=== PATIENT | female | born 1945 | race Caucasian/White ===

== ENCOUNTER 2020-01-20 14:21 | Outpatient (REF) | payer MEDICARE, SELFPAY ==
[2020-01-20 18:07] LABS: C Reactive Protein 0.85 mg/dL (< or = 0.50); Rheumatoid Factor < 15.0 IU/mL (<15.0)
[2020-01-21 13:22] LABS: Lyme Blot >12.00 index
[2020-01-24 15:13] LABS: Babesia IgG <1:64 titer (<1:64); Babesia IgM <1:20 titer (<1:20)
[2020-01-25 11:07] LABS: A. Phagocytophilum Ab IgG <1:64 (<1:64); A. Phagocytophilum Ab IgM <1:20 (<1:20); E. Chaffeensis Ab IgG <1:64 (<1:64); E. Chaffeensis Ab IgM <1:20 (<1:20)
== END 2020-01-20 14:22 | disposition home or self-care (01) ==
LOC: HO.MANLDS 14:21
PROVIDERS: PCP Physician Assistant; Visit Provider Physician Assistant
DX: M25.50 Pain in unspecified joint (principal)
CPT/HCPCS: 36415; 82306; 86038; 86039; 86140; 86431; 86618; 86666; 86753

== ENCOUNTER 2020-04-17 14:22 | Outpatient (REF) | payer MEDICARE, SELFPAY ==
[2020-04-17 17:53] LABS: MANUAL DIFF FLAG NO
[2020-04-17 18:24] LABS: Basophils Absolute Auto 0.1 X10*3/uL (0.0-0.2); Basophils Percent Auto 0.7 % (0-2); Eosinophils Absolute Auto 0.1 X10*3/uL (0.0-0.4); Eosinophils Percent Auto 1.3 % (0-4); Hematocrit 43.1 % (37-47); Hemoglobin 13.5 g/dl (12.0-16.0); Imm Gran Abs Auto 0.03 X10*3/uL (0.00-0.03); Imm Gran Pct Auto 0.3 % (0.0-0.4); Lymphocytes Percent Auto 22.2 % (20-40); Mean Corpuscular HGB Conc 31.3 g/dl (31.0-35.0); Mean Corpuscular Hemoglobin 28.7 pg (27.0-33.0); Mean Corpuscular Volume 91.7 fL (80-98); Mean Platelet Volume 10.9 fL (9.4-12.3); Monocytes Absolute Auto 0.5 X10*3/uL (0.1-1.2); Monocytes Percent Auto 5.9 % (2-11); Neutrophils Absolute Auto 6.2 X10*3/uL (2.0-8.3); Neutrophils Percent Auto 69.6 % (45-73); Platelet Count 310 X10*3/uL (160-400); Red Cell Distribution Width 13.6 % (11.0-16.0); White Blood Count 8.9 X10*3/uL (4.8-10.8)
[2020-04-17 18:33] LABS: Alanine Aminotransferase 13 U/L (0-31); Alkaline Phosphatase 54 U/L (39-117); Anion Gap 12 (12-20); Aspartate Amino Transferase 12 U/L (5-31); Bilirubin Total 0.8 mg/dL (0.0-1.0); Blood Urea Nitrogen 15 mg/dL (9-16); C Reactive Protein 0.75 mg/dL (< or = 0.50); Calcium 9.3 mg/dL (8.4-10.2); Carbon Dioxide 30 mmol/L (22-29); Chloride 105 mmol/L (96-108); Estimated Glomerular Filt Rate > 60; Glucose Random 83 mg/dL (60-115); Iron 78 mcg/dL (30-160); Percent Iron Saturation 25 % (15-50); Potassium 4.8 mmol/L (3.3-5.1); Sodium 142 mmol/L (135-145); Total Iron Binding Capacity 318 mcg/dL (228-428); Total Protein 6.4 g/dL (6.5-8.0); Unsaturated Iron Binding 240 ug/dL
[2020-04-17 18:43] LABS: Rheumatoid Factor < 15.0 IU/mL (<15.0)
[2020-04-17 18:48] LABS: Ferritin 88 ng/mL (10-250); Free T4 (Free Thyroxine) 1.06 ng/dL (0.71-1.85); Thyroid Stimulating Hormone 1.02 uIU/mL (0.32-4.0); Vitamin D 25-OH Total 18.5 ng/mL (>30)
[2020-04-17 18:55] LABS: Erythrocyte Sedimentation Rate 8 MM/HR (0-20)
[2020-04-17 18:56] LABS: Folate 12.7 ng/mL (> or = 4.0); Vitamin B12 245 pg/mL (200-900)
[2020-04-19 14:01] LABS: Anti Nuclear Antibody Screen NEGATIVE (NEGATIVE)
[2020-04-20 14:32] LABS: 18 KD (IgG) Band REACTIVE; 23 KD (IgG) Band NON-REACTIVE; 23 KD (IgM) Band REACTIVE; 28 KD (IgG) Band REACTIVE; 30 KD (IgG) Band REACTIVE; 39 KD (IgM) Band NON-REACTIVE; 41 KD (IgM) Band NON-REACTIVE; 45 KD (IgG) Band REACTIVE; 58 KD (IgG) Band REACTIVE; 66 KD (IgG) Band NON-REACTIVE; 93 KD (IgG) Band REACTIVE; Lyme IgG Blot Interp POSITIVE (NEGATIVE); Lyme IgM Blot Interp NEGATIVE (NEGATIVE)
== END 2020-04-17 14:23 | disposition home or self-care (01) ==
LOC: HO.MANLDS 14:22
PROVIDERS: PCP Internal Medicine; Visit Provider Physician Assistant
DX: R53.83 Other fatigue (principal)
CPT/HCPCS: 36415; 80053; 82306; 82607; 82728; 82746; 83540; 84439; 84443; 85025; 85652; 86038; 86039; 86140; 86431; 86617; 86618

== ENCOUNTER 2021-03-05 10:43 | Outpatient (REF) | payer MEDICARE, SELFPAY ==
[2021-03-05 14:45] LABS: Vitamin D 25-OH Total 19.9 ng/mL (>30)
[2021-03-05 15:21] LABS: Vitamin B12 > 2000 pg/mL (200-900)
== END 2021-03-05 10:44 | disposition home or self-care (01) ==
LOC: HO.MANLDS 10:43
PROVIDERS: PCP Physician Assistant; Visit Provider Physician Assistant
DX: E55.9 Vitamin D deficiency, unspecified (principal); E53.8 Deficiency of other specified B group vitamins
CPT/HCPCS: 36415; 82306; 82607

== ENCOUNTER → 2021-10-01 12:41 | Outpatient (BNVA) | payer MEDICARE, SELFPAY | PROVIDERS: PCP Physician Assistant; Visit Provider Student in an Organized Health Care Education/Training Program | DX: R76.8 Other specified abnormal immunological findings in serum (principal); M16.12 Unilateral primary osteoarthritis, left hip; R53.83 Other fatigue; G72.9 Myopathy, unspecified | CPT/HCPCS: 99202 ==

== ENCOUNTER 2021-10-08 13:47 | Outpatient (REF) | payer MEDICARE, SELFPAY ==
[2021-10-08 14:16] LABS: MANUAL DIFF FLAG NO
[2021-10-08 15:22] LABS: Basophils Absolute Auto 0.1 X10*3/uL (0.0-0.2); Basophils Percent Auto 0.6 % (0-2); Eosinophils Absolute Auto 0.1 X10*3/uL (0.0-0.4); Eosinophils Percent Auto 1.2 % (0-4); Hematocrit 42.3 % (37.0-47.0); Hemoglobin 13.4 g/dl (12.0-16.0); Imm Gran Abs Auto 0.03 X10*3/uL (0.00-0.03); Imm Gran Pct Auto 0.3 % (0.0-0.4); Lymphocytes Absolute Auto 1.7 X10*3/uL (1.2-4.9); Lymphocytes Percent Auto 17.1 % (20-40); Mean Corpuscular HGB Conc 31.7 g/dl (31.0-35.0); Mean Corpuscular Volume 88.3 fL (80.0-98.0); Mean Platelet Volume 10.4 fL (9.4-12.3); Monocytes Absolute Auto 0.5 X10*3/uL (0.1-1.2); Monocytes Percent Auto 5.5 % (2-11); Neutrophils Absolute Auto 7.3 x10*3/uL (2.0-8.3); Neutrophils Percent Auto 75.3 % (45-73); Platelet Count 372 X10*3/uL (160-400); Red Blood Count 4.79 X10*6/uL (4.20-5.50); Red Cell Distribution Width 13.7 % (11.0-16.0); White Blood Count 9.7 X10*3/uL (4.8-10.8)
[2021-10-08 15:39] LABS: C Reactive Protein 0.99 mg/dL (< or = 0.50); Rheumatoid Factor < 15.0 IU/mL (<15.0)
[2021-10-08 15:51] LABS: Erythrocyte Sedimentation Rate 21 MM/HR (0-20)
[2021-10-08 16:01] LABS: Thyroid Stimulating Hormone 0.58 uIU/mL (0.32-4.0)
[2021-10-08 16:45] LABS: Appearance Urine Clear; Color Urine Yellow; Glucose Urine UA Negative (Negative); Leukocyte Esterase Urine Negative (Negative); Nitrite Urine Negative (Negative); Specific Gravity - Urine >= 1.030 (1.005-1.025); Urine Blood Negative (Negative); Urine Ketones Negative (Negative); Urine Protein Negative (Neg-Trace)
[2021-10-08 16:51] LABS: Creatinine Urine 220.01 mg/dL; Protein/Creatinine Ratio, Ur 0.06 (<0.2); Total Protein Urine Random 13 mg/dL (<12)
[2021-10-08 17:55] LABS: RBC Urine 0-2 /HPF (0-2); WBC Urine 0-5 /HPF (0-5)
[2021-10-08 17:56] LABS: Bacteria Urine Trace (None Seen); Calcium Oxalate Crystals Urine Present; Squamous Epithelial Cell Urine 0-2 /HPF (0-2)
[2021-10-09 07:36] LABS: HBS Num1 0.65 mIU/mL (0-7.99); HBc Num1 0.06 S/CO (0.00-0.79); HBsAGNum1 0.21 S/CO (0.00-0.99); Hepatitis A Antibody IgM 0.13 Index (0-0.79); Hepatitis B Core Antibody Nonreactive (Nonreactive); Hepatitis B Surface Antigen Negative (Negative); ~HepC Num1 0.05 S/CO (0.00-0.79); ~Hepatitis A Antibody IgM Nonreactive (Nonreactive); ~Hepatitis B Surface Antibody NONREACTIVE (Nonreactive); ~Hepatitis C Antibody Nonreactive (Nonreactive)
[2021-10-10 15:42] LABS: Cyclic Citrullinated Peptide <16 UNITS
[2021-10-11 10:08] LABS: Anti Nuclear Antibody Screen NEGATIVE (NEGATIVE)
[2021-10-11 14:02] LABS: Prot Elec - Albumin 3.7 g/dL (3.8-4.8); Prot Elec - Alpha1 0.4 g/dL (0.2-0.3); Prot Elec - Alpha2 0.9 g/dL (0.5-0.9); Prot Elec - Beta 1 0.5 g/dL (0.4-0.6); Prot Elec - Beta 2 0.4 g/dL (0.2-0.5); Prot Elec - Gamma 0.8 g/dL (0.8-1.7); Prot Elec - Total Protein 6.5 g/dL (6.1-8.1)
[2021-10-11 14:25] LABS: Antibody to SS-A Antigen <1.0 NEG AI (<1.0 NEG); Antibody to SS-B Antigen <1.0 NEG AI (<1.0 NEG)
[2021-10-12 12:47] LABS: Vitamin D 25-OH, D2 32 ng/mL; Vitamin D 25-OH, D3 6 ng/mL; Vitamin D 25-OH, Total 38 ng/mL (30-100)
[2021-10-15 09:52] LABS: IgA 209 mg/dL (70-320); IgG 838 mg/dL (600-1540); IgM 26 mg/dL (50-300)
== END 2021-10-08 13:48 | disposition home or self-care (01) ==
LOC: HO.LAB 13:47
PROVIDERS: Visit Provider Student in an Organized Health Care Education/Training Program
DX: Z11.59 Encounter for screening for other viral diseases (principal); M16.12 Unilateral primary osteoarthritis, left hip; R53.83 Other fatigue; G72.9 Myopathy, unspecified
CPT/HCPCS: 36415; 81001; 82085; 82306; 82550; 82784; 84156; 84165; 84443; 85025; 85652; 86038; 86039; 86140; 86200; 86235; 86334; 86431; 86704; 86706; 86709; 86803; 87340

== ENCOUNTER 2021-10-11 12:45 | Outpatient (REF) | payer MEDICARE, SELFPAY ==
--- NOTE | ~2021-10-11 | MR_ITS ---
EXAMINATION: MR HIP WITHOUT CONTRAST, LEFT CLINICAL INFORMATION: Severe left hip pain. Osteoarthritis. COMPARISON: None TECHNIQUE: MRI of the left hip was obtained using routine sequences on a high-field magnet. FINDINGS: ACETABULAR LABRUM: Attenuation and irregularity of the anterosuperior labrum consistent with complex tearing. ARTICULAR CARTILAGE/BONE: Full-thickness articular cartilage loss along the superior joint space with subchondral cystic change and marginal osteophytes. There is flattening of the superior femoral head with subchondral low T1/T2 signal measuring 2.7 x 1.1 cm (AP x ML), consistent with a nondisplaced subchondral fracture. Prominent marrow edema throughout the femoral head extending into the proximal femoral metaphysis. No evidence of avascular necrosis. No concerning lytic or blastic osseous lesion. MUSCLES/TENDONS: Moderate gluteus minimus tendinosis. Edema within the adductor musculature consistent with mild muscle strains. JOINT FLUID/BURSA: Moderate joint effusion with prominent synovitis. INTRAPELVIC STRUCTURES: Sigmoid diverticulosis without evidence of acute diverticulitis. MR/MR hip LT wo con IMPRESSION: 1. Invnntes-gk-ikmnfu left hip osteoarthritis with a moderate joint effusion and prominent synovitis. 2. Nondisplaced subchondral fracture within the superior aspect of the femoral head with prominent marrow edema. 3. Moderate gluteus minimus tendinosis. Mild strains of the adductor muscles. 4. Sigmoid diverticulosis.
== END 2021-10-11 12:46 | disposition home or self-care (01) ==
LOC: HO.MRI 12:45
PROVIDERS: Visit Provider Student in an Organized Health Care Education/Training Program
DX: M16.12 Unilateral primary osteoarthritis, left hip (principal); G72.9 Myopathy, unspecified; R53.83 Other fatigue
CPT/HCPCS: 73721

== ENCOUNTER 2021-10-22 13:04 | Outpatient (REF) | payer MEDICARE, SELFPAY ==
--- NOTE | ~2021-10-22 | FL_ITS ---
EXAMINATION: XR ARTHROGRAM HIP, LEFT CLINICAL INFORMATION: Severe left hip osteoarthritis with moderate joint effusion. COMPARISON: None TECHNIQUE: Following explaining fluoroscopy-guided left hip joint arthrocentesis and hip joint steroid injection procedure, benefits and risks, a written consent was obtained. Patient was placed supine on fluoroscopy table and anterior aspect of left hip joint was cleaned and draped in usual sterile manner. 1% lidocaine was injected along the lateral border of intertrochanteric line. A 20-gauge spinal needles and then inserted along the lateral femoral neck and along the lateral left femoral neck cortex. No fluid could be aspirated. 2 mL nonionic contrast was injected to confirm position of the needle in the joint space. A single image was obtained. Subsequently 80 mg of Depo-Medrol and 3 mL of 1% lidocaine was injected and needle withdrawn. Complete hemostasis was achieved at puncture site.. Physical movement of left hip joint was performed postprocedure and the patient had no pain at this time. Patient did have unbearable pain when needle was inserted into the joint space. Sterile Band-Aid applied postprocedure. FINDINGS: There are no fractures or dislocations. No lytic or sclerotic process seen. No fluid could be aspirated through the left hip joint. Patient has excruciating pain and unable to tolerate the exam. Successful 80 mg of Depo-Medrol and 3 mL of 1% lidocaine was injected. Patient had significant relief after injection. FLUOROSCOPY TIME: 1.2 minutes. DOSE AREA PRODUCT: 6.039 uGy-m2 (microgray-meter squared) FL/FL arthrogram hip LT IMPRESSION: Successful fluoroscopy guided left hip attempted arthrocentesis followed by left hip steroid injection.
== END 2021-10-22 13:05 | disposition home or self-care (01) ==
LOC: HO.XRAY 13:04
PROVIDERS: Visit Provider Student in an Organized Health Care Education/Training Program
DX: M16.12 Unilateral primary osteoarthritis, left hip (principal)
CPT/HCPCS: 27093; 73525

== ENCOUNTER → 2021-10-31 12:53 | Outpatient (BNVA) | payer MEDICARE, SELFPAY | PROVIDERS: PCP Physician Assistant; Visit Provider Student in an Organized Health Care Education/Training Program | DX: Z13.820 Encounter for screening for osteoporosis (principal); M16.12 Unilateral primary osteoarthritis, left hip; R76.8 Other specified abnormal immunological findings in serum; R53.82 Chronic fatigue, unspecified; M84.352D Stress fracture, left femur, subsequent encounter for fracture with routine healing | CPT/HCPCS: 99212 ==

== ENCOUNTER 2021-11-01 10:07 | Outpatient (REF) | payer MEDICARE, SELFPAY ==
--- NOTE | ~2021-11-01 | XR_ITS ---
EXAMINATION: XR HIP, LEFT CLINICAL INFORMATION: Left hip pain. COMPARISON: None TECHNIQUE: Two views of the left hip. AP pelvis one view. FINDINGS: AP PELVIS: There is mild loss of bilateral hip joint space. The SI joint spaces maintained normal. No fracture or lytic or sclerotic process seen. LEFT HIP: AP and frog-leg views left hip reveal no visible acute fracture, dislocation or bony erosive changes. The soft tissues are normal. XR/XR hip LT w PEL1V IMPRESSION: Mild degenerative changes bilateral hip joints. No acute fracture or dislocation seen in left hip.
== END 2021-11-01 10:08 | disposition home or self-care (01) ==
LOC: HO.HOSX 10:07
PROVIDERS: Visit Provider Physician Assistant
DX: M16.12 Unilateral primary osteoarthritis, left hip (principal); M84.352A Stress fracture, left femur, initial encounter for fracture
CPT/HCPCS: 73502; 99202

== ENCOUNTER → 2021-12-02 12:37 | Outpatient (BNVA) | payer MEDICARE, SELFPAY | PROVIDERS: PCP Nurse Practitioner Primary Care; Visit Provider Orthopaedic Surgery | DX: Z01.818 Encounter for other preprocedural examination (principal); M16.12 Unilateral primary osteoarthritis, left hip | CPT/HCPCS: 99212 ==

== ENCOUNTER 2021-12-30 14:28 | Outpatient (REF) | payer MEDICARE, SELFPAY ==
[2021-12-30 14:47] LABS: MANUAL DIFF FLAG NO
[2021-12-30 15:17] LABS: Basophils Absolute Auto 0.1 X10*3/uL (0.0-0.2); Basophils Percent Auto 0.6 % (0-2); Eosinophils Absolute Auto 0.1 X10*3/uL (0.0-0.4); Eosinophils Percent Auto 0.8 % (0-4); Hematocrit 43.3 % (37.0-47.0); Hemoglobin 13.6 g/dl (12.0-16.0); Imm Gran Abs Auto 0.04 X10*3/uL (0.00-0.03); Imm Gran Pct Auto 0.4 % (0.0-0.4); Lymphocytes Absolute Auto 1.8 X10*3/uL (1.2-4.9); Lymphocytes Percent Auto 17.4 % (20-40); Mean Corpuscular HGB Conc 31.4 g/dl (31.0-35.0); Mean Corpuscular Volume 89.3 fL (80.0-98.0); Monocytes Absolute Auto 0.5 X10*3/uL (0.1-1.2); Monocytes Percent Auto 4.8 % (2-11); Platelet Count 425 X10*3/uL (160-400); Red Blood Count 4.85 X10*6/uL (4.20-5.50); Red Cell Distribution Width 14.3 % (11.0-16.0); White Blood Count 10.5 X10*3/uL (4.8-10.8)
[2021-12-30 15:52] LABS: Alanine Aminotransferase 17 U/L (0-31); Albumin Level 4.2 g/dL (3.5-5.0); Alkaline Phosphatase 69 U/L (39-117); Anion Gap 15 (12-20); Aspartate Amino Transferase 16 U/L (5-31); Bilirubin Total 0.3 mg/dL (0.0-1.0); Blood Urea Nitrogen 13 mg/dL (9-16); C Reactive Protein 1.37 mg/dL (< or = 0.50); Calcium 9.7 mg/dL (8.4-10.2); Carbon Dioxide 26 mmol/L (22-29); Chloride 105 mmol/L (96-108); Estimated Glomerular Filt Rate > 60; Glucose Random 124 mg/dL (60-115); Potassium 4.1 mmol/L (3.3-5.1); Sodium 142 mmol/L (135-145); Total Protein 6.8 g/dL (6.5-8.0)
[2021-12-30 15:54] LABS: Erythrocyte Sedimentation Rate 19 MM/HR (0-20)
== END 2021-12-30 14:29 | disposition home or self-care (01) ==
LOC: HO.LAB 14:28
PROVIDERS: Visit Provider Student in an Organized Health Care Education/Training Program
DX: M16.12 Unilateral primary osteoarthritis, left hip (principal)
CPT/HCPCS: 36415; 80053; 85025; 85652; 86140

== ENCOUNTER → 2022-01-02 12:53 | Outpatient (BNVA) | payer MEDICARE, SELFPAY | PROVIDERS: PCP Nurse Practitioner Primary Care; Visit Provider Student in an Organized Health Care Education/Training Program | DX: M16.12 Unilateral primary osteoarthritis, left hip (principal); R76.8 Other specified abnormal immunological findings in serum; M80.052A Age-related osteoporosis with current pathological fracture, left femur, initial encounter for fracture | CPT/HCPCS: 99212 ==

== ENCOUNTER → 2022-02-20 13:41 | Outpatient (BNVA) | payer MEDICARE, SELFPAY | PROVIDERS: PCP Nurse Practitioner Primary Care; Visit Provider Physician Assistant | DX: M16.12 Unilateral primary osteoarthritis, left hip (principal); R76.8 Other specified abnormal immunological findings in serum | CPT/HCPCS: 99212 ==

== ENCOUNTER 2022-02-26 07:03 | Inpatient (IN) | payer MEDICARE, SELFPAY ==
[2022-02-12 12:11] VITALS: BP 131/66; PULSE 75; RESP 20; O2SAT 98; BMI 31.6
--- NOTE | 2022-02-12 12:38 | HO.ANESPROP2 ---
HPI - Anesthesia Eval Consult details Narrative: 76yo female patient for Left total hip arthroplasty PMFSH Active Problems Active Problems: All Active Problems (Updated 02/12/22 @ 12:06 by Zakia Yusuf RN) Arthritis of left hip (Acute) Stress fracture, left femur, initial encounter for fracture (Acute) Screening for osteoporosis (Acute) Other osteoporosis without current pathological fracture (Acute) Osteoporosis with pathological fracture (Acute) Positive Lyme disease serology (Acute) Encounter for screening for viral disease (Acute) Myopathy (Acute) Fatigue (Acute) Osteoarthritis of left hip (Acute) Was on low dose naltrexone for Lyme disease. Not taking any more Past Medical History Medical History Arthritis Encounter for screening for viral disease Family history of anesthesia complication Fatigue GERD (gastroesophageal reflux disease) Lymphedema Macular degeneration Myopathy Osteoarthritis of left hip Positive Lyme disease serology Family History Family History Mother Lung cancer Father Lung cancer Family history of problems with anesthesia: Yes (Sister- slow awakening. Sensitive to medications) Surgical History Surgical History H/O colonoscopy H/O: hysterectomy History of esophagogastroduodenoscopy (EGD) Hx of tonsillectomy History of Problems with Anesthesia: No Social History Social History Household Members Other:: lives alone Housing: House Are you a primary managed care specialist to a significant other at home: No Do you presently have visiting nurse or other home services: No 75 years or older and lives alone: No Alcohol intake: current Alcohol intake frequency: holidays/special occasions only Alcohol type: hard liquor Patient Tobacco Use Status: Never used Tobacco e-Cigarette/Vaping Use: Never Used service: No Current occupational status: retired 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 Meds 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 Allergy/AdvReac Type Severity Reaction Status Date / Time No Known Allergies Allergy Verified 01/02/22 13:09 Home Medications Medication Instructions Recorded Confirmed Last Taken Type lidocaine HCl 4 % topical cream 1 appl topical BID PRN Pain 10/01/21 02/12/22 Unknown History (Aspercreme (lidocaine HCl)) naproxen sodium 220 mg tablet 220 mg PO BID PRN Pain 10/01/21 02/12/22 Unknown History (Aleve) ergocalciferol (vitamin D2) 1,250 1,250 mcg PO QWEEK 11/01/21 02/12/22 Unknown History mcg (50,000 unit) capsule acetaminophen 650 mg 1,300 mg PO DAILY PRN Pain 01/02/22 02/12/22 Unknown History tablet,extended release vit C 250 mg-vit E 90 mg-zinc 40 1 tab PO BID 02/12/22 02/12/22 Unknown History mg-copper 1 jn-gaodhj-rxerde capsule (PreserVision AREDS-2) Exam Exam Date and Time: February 12, 2022 1238 Height,Weight and Vital Signs: Height 5 ft 1 in Weight 75.9 kg Last Vital Signs Pulse 75 02/12/22 12:11 Resp 20 02/12/22 12:11 BP 131/66 02/12/22 12:11 Pulse Ox 98 02/12/22 12:11 O2 Del Method 02/12/22 12:11 Airway Mallampati Class: II TM Dist: >3cm Neck ROM: Full Loose/Missing/Broken Teeth: Yes (Broken tooth top left. Denies loose or missing teeth) Heart: RRR Lungs: CTAB Assessment and Plan Assessment Anesthesia Assessment: Anesthesia Plan Discussed, PAT Visit and Chart Reviewed Final Anesthetic Review Family History of Problems with Anesthesia: Yes (Sister- slow awakening. Sensitive to medications) History of Problems with Anesthesia: No ASA Class: II Final Preanesthetic Review: No Changes in Pt Med Stat, Meds/Allgs Chart Reviewed and Anes Risks/Benef Reviewed Patient Risk: Intermediate Procedure Risk: Intermediate Anesthetic Plan Anesthetic Plan: GA Disposition: Standard PACU and Inp. Admit - Standard Bed
[2022-02-12 14:58] LABS: MRSA Nasal PCR NEGATIVE (Negative); SA Nasal PCR NEGATIVE (Negative)
[2022-02-26] VITALS (20 sets, daily range): BP systolic 127–163; BP diastolic 60–95; PULSE 66–90; RESP 14–22; TEMP 36.1–37.2; O2SAT 96–100
--- NOTE | ~2022-02-26 | XR_ITS ---
EXAMINATION: XR PELVIS CLINICAL INFORMATION: November 01, 2021 COMPARISON: November 01, 2021 TECHNIQUE: AP view of the pelvis. FINDINGS: AP film of the lower pelvis performed. Since previous study patient is status post left hip total arthroplasty. On this single film the acetabular and femoral components appear in good position. No dislocation is evident. No prosthetic fractures identified. No bony fracture is seen. The right hip joint space appears maintained. There is some chronic spurring of the right greater trochanter. XR/XR pelvis 1-2V IMPRESSION: Satisfactory appearance of the lower pelvis which does not include the iliac crests as described status post left hip total arthroplasty.
--- OUTSIDE RECORDS SUMMARY | 2022-02-26 07:07 | XMS_ITS ---
:1945 Author Care Team Providers Name Role Phone Aixa Meade Primary Care Provider Unavailable Allergies Code Code System Name Reaction Severity Status Onset NKDA ? Medications Name Status Start Date Stop Date ? ? cholecalciferol (vitamin D3) 1,250 mcg (50,000 unit) capsule Act mehran ? Not available TAKE 1 CAPSULE BY MOUTH ONE TIME PER WEEK doxycycline hyclate 100 mg tablet Completed ? 04/17/2020 TAKE 1 TABLET(S) BY MOUTH TWICE A DAY WITH MEALS FOR 14 DAYS. ergocalciferol (vitamin D2) 1,250 mcg (50,000 unit) capsule Acti ve ? Not available TAKE 1 CAPSULE BY MOUTH ONE TIME PER WEEK Fluad Quad (65yr up)(PF) 60 mcg (15 mcg x 4)/ 0.5mL IM syringe Completed ? 01/20/2020 PHARMACY ADMINISTERED magnesium Active ? Not available Pneumovax-23 25 mcg/0.5 mL injection syringe Completed ? 01/20/2020 PHARMACY ADMINISTERED PreserVision AREDS Active ? Not available Vitamin D3 50 mcg (2,000 unit) capsule Completed ? 09/13/2019 1 qd Problems Name Status Onset Date Source ? Multinodular Goiter Active 07/07/2017 ? Cleo Thyroiditis Active 07/07/2017 ? Vitamin D Deficiency Active 07/07/2017 ? Degenerative Disorder of Macula Active 07/07/2017 ? Gastroesophageal Reflux Disease without Esophagitis Active 07/07/2017 ? History of Hysterectomy Active 07/07/2017 ? Procedures Date Name Performed by ? 05/03/2018 Colonoscopy Information not avai lable Notes: due 202801/05/2018 CT, Abdomen + Pelvis, W/ Contrast [facility] (Scheduling Dept) [address] [place] [place] [address] (Work [address]) 09/26/2019 US, Knee [facility] [address] [place] [place] [address] (Work Place) 04/17/2020 US, Echocardiogram [facility] [address] [place] [place] [address] (Work Place) 03/06/2021 Bone Density [facility] [address] [place] [place] [address] (Work Place) Results Lab Results Date Name Specimen Result Interpretation Description Value Range Status Address ? 03/05/2021 Vitamin B12, Serum ? No observation ? ? ? [facility] recorded. Center (Medical Records): [address] [place] [address] 03/05/2021 Vitamin D, ? No observation ? ? ? [facility] 25-Hydroxy, Total, recorded. [place] (Medical Serum Records): [address] [place] [address] 04/17/2020 CBC W/ Auto Diff ? No observation ? ? ? [facility] recorded. Center (Medical Records): [address] [place] [address] 04/17/2020 Vitamin B12 + Folate, ? No observation ? ? ? [facility] Serum or Blood recorded. Center (Medical Records): [address] [place] [address] 04/17/2020 TSH + Free T4, Serum ? No observation ? ? ? [facility] recorded. [place] [facility] (Medical Records): [address] [place] [address] 04/17/2020 Vitamin D, ? No observation ? ? ? [facility] 25-Hydroxy, Total, recorded. [place] (Medical Serum Records): [address] [place] [address] 04/17/2020 Iron + TIBC + ? No observation ? ? ? [facility] Ferritin, Serum recorded. Center (Medical Records): [address] [place] [address] 04/17/2020 CMP, Serum or Plasma ? No observation ? ? ? [facility] recorded. [place] [facility] (Medical Records): [address] [place] [address] 04/17/2020 Lyme Disease Igg+igm, ? No observation ? ? ? [facility] Serum, Reflex [place] recorded. [place] Blot Laboratory : [address] [place] [address] 04/17/2020 ERIK + Rf (Antinuclear ? No observation ? ? ? [facility] Antibodies + recorded. C enter Rheumatoid Factor), Laboratory: [address] 04/17/2020 Lyme Disease Igg+igm, ? No observation ? ? ? [facility] Serum, Reflex [place] recorded. Center Blot Laboratory : [address] [place] [address] 01/20/2020 Lyme Disease Igg+igm, ? No observation ? ? ? [facility] Serum, Reflex [place] recorded. Center (Medical Blot Records): [address] [place] [address] 01/20/2020 Vitamin D, ? No observation ? ? ? [facility] 25-Hydroxy, Total, recorded. Center (Medical Serum Records): [address] [place] [address] 01/20/2020 ERIK (Antinuclear ? No observation ? ? ? [facility] Antibodies) Screen, recorded. Center (Medical Serum Records): [address] [place] [address] 01/20/2020 Anaplasma ? No observation ? ? ? [facility] Phagocytophilum recorded. Center (Medical (Hga/hge) Igg+igm Ab, Records): [facility] Serum [facility] 01/20/2020 Babesia Microti ? No observation ? ? ? [facility] Igg+igm Ab, Serum recorded. Center (Medical Records): [address] [place] [address] 02/05/2018 ESR (Erythrocyte ? No observation ? ? ? [facility] Sedimentation Rate), recorded. [facility] Blood [facility] ([facility]): [address] [facility] n 02/05/2018 C Reactive Protein, ? No observation ? ? ? [facility] QN, Serum or Plasma recorded. Hospital Lab Services ([facility]): [address] [facility] n 01/11/2018 Urinalysis, Reflex ? No observation ? ? ? [facility] Culture recorded. Hospit al Lab Services ([facility]): [address] [facility] n 01/11/2018 ESR (Erythrocyte ? No observation ? ? ? [facility] Sedimentation Rate), recorded. [facility] Lab Blood [facility] ([facility]): [address] [facility] n 01/11/2018 C Reactive Protein, ? No observation ? ? ? [facility] QN, Serum or Plasma recorded. Hospital Lab Services ([facility]): [address] [facility] n 01/11/2018 CMP, Serum or Plasma ? No observation ? ? ? [facility] recorded. [facility] ([facility]patien t): [address] [facility] n 08/31/2017 Vitamin D, ? No observation ? ? ? 25-Hydroxy, Total, recorded. Serum ? CMP, Serum or Plasma ? No observation ? ? ? [facility] recorded. Center Laboratory : [address], [place] Past Encounters Encounter Date Diagnosis Provider 05/07/2021 Active or Passive Immunization; COLE Ye: [address] [place] Fatigue; Vitamin D Deficiency; Naveen [place], [place], [place] Osteoporosis [id number], Ph. Social History Tobacco Smoking Status Never Smoker Vaccine List Vaccine Type influenza, injectable, quadrivalent 12/28/2018 02/21/2021 pneumococcal conjugate PCV 13 12/28/2018 Plan of Care Reminders Provider Appointments None recorded. ? ? Lab None recorded. ? ? Referral None recorded. ? ? Procedures None recorded. ? ? Surgeries None recorded. ? ? Imaging None recorded. ? ? Vitals 05/07/2021 01:45PM FOLLOW UP 15 Height Weight BMI Blood Pressure 5 ft 0.5 in 186 lbs 35.7 kg/m2 130/78 mm[Hg] 04/17/2020 01:45PM FOLLOW UP 15 Height Weight BMI Blood Pressure 5 ft 0.5 in 192.6 lbs 37 kg/m2 112/82 mm[Hg] 01/20/2020 02:00PM SDV Height Weight BMI Blood Pressure 5 ft 0.5 in 122/82 mm[Hg] 09/13/2019 11:15AM NEW PROBLEM 15 Height Weight BMI Blood Pressure 5 ft 0.5 in 191.5 lbs 36.8 kg/m2 128/80 mm[Hg] 01/05/2018 04:15PM FOLLOW UP 15 Height Weight BMI Blood Pressure 5 ft 0.5 in 163.8 lbs 31.5 kg/m2 116/80 mm[Hg]
--- NOTE | 2022-02-26 07:28 | PHA.MEDREC ---
Pharmacy Consult ? Medication Reconciliation Pharmacy has completed the medication reconciliation. Reviewed med rec done by nursing
[2022-02-26 07:31] LABS: IDNOW Serial# 16C4AD1C
[2022-02-26 07:32] LABS: COVID-19 Test Negative (Negative)
--- NOTE | 2022-02-26 07:52 | MHC.SHP ---
Pre-Procedural Eval Section A Date of Service: 02/26/22 The patient is an INPATIENT: No Changes since office visit: No Cold of Flu in the past 2 weeks, No New Medical Problems, No Changes in Medication and No Patient answered all questions The History & Physical has been completed within 30 days and I have reviewed it.: Yes Section B Chief Complaint: LT BRAYAN Allergies: Allergies Allergy/AdvReac Type Severity Reaction Status Date / Time No Known Allergies Allergy Verified 02/20/22 13:54 Plan I have reviewed the history and physical and performed a pertinent physical examination on my patient. No changes have occurred unless specified. Time Spent With Patient Time: Total time managing care of this patient today ____ minutes.
--- NOTE | 2022-02-26 08:00 | P.CONAN_ITS ---
HPI - Anesthesia Eval Consult details Narrative: thr PMFSH Active Problems Active Problems: All Active Problems (Updated 02/12/22 @ 12:06 by Zakia Yusuf RN) Arthritis of left hip (Acute) Stress fracture, left femur, initial encounter for fracture (Acute) Screening for osteoporosis (Acute) Other osteoporosis without current pathological fracture (Acute) Osteoporosis with pathological fracture (Acute) Positive Lyme disease serology (Acute) Encounter for screening for viral disease (Acute) Myopathy (Acute) Fatigue (Acute) Osteoarthritis of left hip (Acute) Past Medical History Medical History Arthritis Encounter for screening for viral disease Family history of anesthesia complication Fatigue GERD (gastroesophageal reflux disease) Lymphedema Macular degeneration Myopathy Osteoarthritis of left hip Positive Lyme disease serology Family History Family History Mother Lung cancer Father Lung cancer Family history of problems with anesthesia: Yes (Sister- slow awakening. Sensitive to medications) Surgical History Surgical History H/O colonoscopy H/O: hysterectomy History of esophagogastroduodenoscopy (EGD) Hx of tonsillectomy History of Problems with Anesthesia: No Social History Social History Household Members Other:: lives alone Housing: House Are you a primary dog day care attendant to a significant other at home: No Do you presently have visiting nurse or other home services: No Alcohol intake: current Alcohol intake frequency: holidays/special occasions only Alcohol type: hard liquor Patient Tobacco Use Status: Never used Tobacco e-Cigarette/Vaping Use: Never Used Use of substances other than those prescribed or required for medical reasons: No Have you been hit, kicked, punched, or otherwise hurt by someone within the past year? 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 Allergies Allergy/AdvReac Type Severity Reaction Status Date / Time No Known Allergies Allergy Verified 02/20/22 13:54 Active Medications: Current Medications Lactated Ringer's (Lr) 1,000 mls @ 100 mls/hr IVCONT .Q10H KAREN Home Medications Medication Instructions Recorded Confirmed Last Taken Type lidocaine HCl 4 % topical cream 1 appl topical BID PRN Pain 10/01/21 02/12/22 Unknown History (Aspercreme (lidocaine HCl)) naproxen sodium 220 mg tablet 220 mg PO BID PRN Pain 10/01/21 02/12/22 Unknown History (Aleve) ergocalciferol (vitamin D2) 1,250 1,250 mcg PO QWEEK 11/01/21 02/12/22 Unknown History mcg (50,000 unit) capsule acetaminophen 650 mg 1,300 mg PO DAILY PRN Pain 01/02/22 02/12/22 Unknown History tablet,extended release vit C 250 mg-vit E 90 mg-zinc 40 1 tab PO BID 02/12/22 02/12/22 Unknown History mg-copper 1 [id number]-sdxocl capsule (PreserVision AREDS-2) Exam Exam Date and Time: February 26, 2022 0800 Height,Weight and Vital Signs: Height 5 ft 1 in Weight 75.9 kg Last Vital Signs Temp 98.9 F 02/26/22 07:39 Pulse 78 02/26/22 07:39 Resp 16 02/26/22 07:39 BP 142/81 H 02/26/22 07:39 Pulse Ox 97 02/26/22 07:39 O2 Del Method 02/26/22 07:39 Pertinent Lab Results Pertinent Lab Results: Laboratory Tests 02/12/22 02/12/22 02/26/22 12:30 13:17 07:05 Nasal Screen MRSA (PCR) NEGATIVE Nasal S. aureus Screen NEGATIVE Nasal MRSA/S.aureus Interp SEE NOTE COVID-19 ([facility]) Negative COVID-19 Clin Com See Note Blood Type O Positive Antibody Screen NEGATIVE Assessment and Plan Final Anesthetic Review Family History of Problems with Anesthesia: Yes (Sister- slow awakening. Sensitive to medications) History of Problems with Anesthesia: No
[2022-02-26] MEDS: oxyCODONE HCl ER 10 MG TAB.ER.12H PO ×2 (08:01→19:57)
[2022-02-26] MEDS: Lactated Ringers 1,000 ML 100 ML IVCONT (08:17)
--- NOTE | 2022-02-26 10:19 | PM.OP ---
Brief Operative Note Date of Service: 02/26/22 Pre-op diagnosis: Left hip OA Post-op diagnosis: same Procedure: Left BRAYAN Implants: [place] Trident2 52/20 deg lip [place] Accolade2 #4 132 deg/ +2.5 36 ceramic femoral head Surgeon: Edwin Hill MD Anesthesia: GETA and local Was an Seating And Mobility Technologist used for this Procedure?: Yes Seating And Mobility Technologist: Christiane Heart Estimated blood loss (mL): 150 IV fluids (mL): 1,000 Pathology: other Condition: stable Disposition: PACU
[2022-02-26] MEDS: HYDROmorphone HCl 0.5 MG/0.5 ML SYRINGE 0.25 MG IVPUSH ×4 (10:43→11:00)
[2022-02-26] MEDS: fentaNYL citrate/PF 100 MCG/2 ML VIAL 25 MCG IVPUSH ×4 (11:10→12:00)
--- NOTE | 2022-02-26 13:06 | W.PM.OPN ---
Operative Note Operative Note Date of Service: 02/26/22 Narrative: Date of Service: 02/26/22 Pre-op diagnosis: Left hip OA Post-op diagnosis: same Procedure: Left BRAYAN Implants: [place] Trident2 52/20 deg lip [place] Accolade2 #4 132 deg/ +2.5 36 ceramic femoral head Surgeon: Edwin Hill MD Anesthesia: GETA and local Was an Roller Coaster Designer used for this Procedure?: Yes Roller Coaster Designer: Christiane Heart Estimated blood loss (mL): 150 IV fluids (mL): 1,000 Pathology: other Condition: stable Disposition: PACU Procedure in detail: Patient was brought into the operating room and placed in the right lateral decubitus position. All bony prominences were well padded and the limb was prepped and draped in standard sterile fashion. A time-out was called to identify proper site procedure proper surgeon IV antibiotics and 1 g of transaxemic acid were administered. I began by making a curvilinear incision over the posterolateral aspect of the greater trochanter. Dissection was taken down to the tensor fascia which was incised in line with the incision and a Charnley retractor was placed. Cautery was used to maintain hemostasis. The hip was internally rotated and the external rotators were identified. The vessels were cauterized and a full-thickness capsular/external rotator layer was developed starting just proximal to the piriformis. This layer was tagged and a dull Hohmann retractor was placed underneath the neck in the hip was dislocated. A neck cut was made 1 cm proximal to the lesser trochanter and the head and neck were removed and measured 44-48mm on the back table. The head was deformed and eburnated. There was no unusual appearance to the hip. There was normal quantity and appearance to the joint fluid. I then removed the labrum and cauterized the fovea. I started with a 44 reamer and medialized to the inner table. I sequentially reamed up to a size 51 and impacted a 52 mm cup at 45 degrees of inclination and 25 degrees of version. I then placed a 20 deg posterior lipped liner and turned my attention to the femur. I identified the piriformis insertion and used this as a starting point for my lucero cutter. The medius tendon was protected with a Hibs retractor. A Charnley awl was inserted in the canal and a curved curette used to remove the lateral bone. I irrigated copiously. I then sequentially broached in the patient's natural version to a size 5 and placed my trial implants. I used a #4/132/+0 based on my pre-operative template. Using a trail head I took the hip through range of motion.I then trialed a +2.5 and was satisfied with the stability. I removed all instrumentation and copiously irrigated. I placed my final femoral implant and again took the hip through range of motion and was satisfied with the stability and length. The final 2.5 implant was impacted in place and the hip reduced. I then irrigated for 3 minutes with iodine and placed 1 g of local transaxemic acid. I performed a capsular closure with 2.0 fiberwire, Cesario's fascia with 0 Vicryl, subcuticular with 2-0 Vicryl and the skin with fernanda. Patient was placed into a sterile dressing. Patient was extubated brought to the recovery room in stable condition. There were no known complications.
--- NOTE | 2022-02-26 15:07 | P.CONHOSP_ITS ---
History of Present Illness Data of Consult Service Date: 02/26/22 Requesting physician: Ale Putnam Primary Care Provider: Alecia Seo NP HPI Reason for consult: co-medical management This is a 76-year-old female who presented to the hospital today for a planned left total hip arthroscopy performed by Dr Edwin Hill. Upon assessment of patient, she is noted to be resting in bed, alert answers questions appropriately. Denies abdominal or chest pain or significant past medical history. Internal Medicine consulted for co-medical management. Review of Systems Review of Systems: A complete 12 point review of systems was performed and are negative if not noted in HPI. [facility] Medical History Arthritis Encounter for screening for viral disease Family history of anesthesia complication Fatigue GERD (gastroesophageal reflux disease) Lymphedema Macular degeneration Myopathy Osteoarthritis of left hip Positive Lyme disease serology Family History Mother Lung cancer Father Lung cancer Surgical History H/O colonoscopy H/O: hysterectomy History of esophagogastroduodenoscopy (EGD) Hx of tonsillectomy Social History Household Members Other:: lives alone Housing: House Are you a primary patient care provider to a significant other at home: No Do you presently have visiting nurse or other home services: No Alcohol intake: current Alcohol intake frequency: holidays/special occasions only Alcohol type: hard liquor Patient Tobacco Use Status: Never used Tobacco e-Cigarette/Vaping Use: Never Used Use of substances other than those prescribed or required for medical reasons: No Currently Displaying Signs/Symptoms of Drug Intoxication Withdrawal: No Have you been hit, kicked, punched, or otherwise hurt by someone within the past year? 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 Allergies Allergy/AdvReac Type Severity Reaction Status Date / Time No Known Allergies Allergy Verified 02/20/22 13:54 Active Medications: Current Medications Acetaminophen (Acetaminophen 325 Mg Tablet) 650 mg PO Q6H PRN PRN Reason: Pain, Mild (Pain Scale 1-3) Celecoxib (Celecoxib 200 Mg Capsule) 200 mg PO BID [facility] Ergocalciferol (Ergocalciferol (Vitamin D2) 1,250 Mcg Capsule) 1,250 mcg PO Brian [facility] Hydromorphone HCl (Hydromorphone Hcl 0.5 Mg/0.5 Ml Syringe) 0.25 mg IVPUSH Q4H PRN; Protocol PRN Reason: Pain, Severe (Pain Scale 7-10) Lactated Ringer's (Lr) 1,000 mls @ 100 mls/hr IVCONT .Q10H [facility] Last Admin: 02/26/22 08:17 Dose: 100 mls/hr Lactated Ringer's (Lr) 1,000 mls @ 100 mls/hr IVCONT .Q10H [facility] Last Admin: 02/26/22 13:49 Dose: Not Given Cefazolin Sodium/Dextrose (Ancef) 2 gm in 50 mls @ 100 mls/hr IV POSTOP ONE Stop: 02/26/22 15:29 Ondansetron HCl (Ondansetron Hcl 4 Mg/2 Ml Vial) 4 mg IVPUSH Q8H PRN PRN Reason: Nausea and Vomiting Oxycodone HCl (Oxycodone Hcl Immed Release 5 Mg Tablet) 10 mg PO Q4H PRN PRN Reason: Pain, Moderate (Pain Scale 4-6 Oxycodone HCl (Oxycodone Hcl Er 10 Mg Tab.Er.12h) 10 mg PO BID [facility] Sodium Chloride (0.9 % Sodium Chloride Flush 3 Ml Syringe) 3 ml IVFLUSH QSHIFT [facility] Last Admin: 02/26/22 14:16 Dose: Not Given Home Medications Medication Instructions Recorded Confirmed Last Taken Type lidocaine HCl 4 % topical cream 1 appl topical BID PRN Pain 10/01/21 02/12/22 Unknown History (Aspercreme (lidocaine HCl)) naproxen sodium 220 mg tablet 220 mg PO BID PRN Pain 10/01/21 02/12/22 Unknown History (Aleve) ergocalciferol (vitamin D2) 1,250 1,250 mcg PO QWEEK 11/01/21 02/12/22 Unknown History mcg (50,000 unit) capsule acetaminophen 650 mg 1,300 mg PO DAILY PRN Pain 01/02/22 02/12/22 Unknown History tablet,extended release vit C 250 mg-vit E 90 mg-zinc 40 1 tab PO BID 02/12/22 02/12/22 Unknown History mg-copper 1 oh-hvsjrn-mvnebs capsule (PreserVision AREDS-2) Physical Exam Vital Signs and Narrative: Vital Signs: Last Vital Signs Temp 98.1 F 02/26/22 12:42 Pulse 81 02/26/22 12:42 Resp 20 02/26/22 12:42 BP 159/74 H 02/26/22 12:42 Pulse Ox 100 02/26/22 12:42 O2 Del Method 02/26/22 12:42 O2 Flow Rate 3 02/26/22 12:25 BMI result Body Mass Index 31.6 Const: Other: General: Appears stated age, in no acute distress, answers questions accurately and appropriately. Skin: Warm and well perfused, no obvious lesions. Cardiology: Regula rate and rhythm, no murmurs, rubs, gallops or clicks, no JVD or carotid bruits appreciated Respiratory: Lungs CTAB, no inspiratory wheezing rales or rhonchi Abdomen: Soft, non distended, bowel sounds present in all four quadrants, no [place] sign Extremity: No bilateral lower pedal or pitting edema noted, no redness, tenderness or swelling noted to bilateral lower extremities, mild tenderness noted to left hip, bandage in place without signs of bleeding/infection. Neuro: Alert and oriented x3, no obvious focal deficit Psych: Calm, follows commands, no agitation restlessness noted Results Labs Labs: Laboratory Results - last 24 hr 02/26/22 07:05 COVID-19 (ULICES) Negative COVID-19 Clin Com See Note Imaging Radiologist's Impressions: Impressions Pelvis X-Ray 02/26/22 11:31 IMPRESSION: Satisfactory appearance of the lower pelvis which does not include the iliac crests as described status post left hip total arthroplasty. Assessment and Plan (1) Arthritis of left hip: Status: Acute (2) Osteoarthritis of left hip: Status: Acute (3) Fatigue: Qualifiers: Fatigue type: chronic, unspecified Qualified Code(s): R53.82 - Chronic fatigue, unspecified Status: Acute Plan Osteoarthritis of left hip treated with total left hip arthroscopy -patient is pod 0 status post left hip arthroscopy performed by Dr. Hill -hold the prior ortho recommendations -patient has analgesics ordered. -PT/OT/OOB per primary team recommendations Generalized weakness -patient also complains of generalized weakness. -discussed with patient the possibility of going to short-term rehab at discharge. -fall precautions in place. DVT prophylaxis -per primary team. Patient is a FULL CODE HCP/person to contact is patient's friend Rosemarie Turk, Will sign off for now, please contact medical service for further questions/concerns. Time Spent With Patient Time: Total time managing care of this patient today ____ minutes.
[2022-02-26] MEDS: ceFAZolin Sodium/Dextrose,Iso 2 GM/50 ML PIGGYBACK IV (15:43)
[2022-02-26] MEDS: oxyCODONE HCl Immed Release 5 MG TABLET 10 MG PO (18:22)
[2022-02-26] MEDS: Celecoxib 200 MG CAPSULE PO (19:58)
[2022-02-27] MEDS: Lactated Ringers 1,000 ML 100 ML IVCONT ×2 (01:14→21:06)
[2022-02-27 03:08] VITALS: BP 129/60; PULSE 74; RESP 18; TEMP 36.7; O2SAT 98
[2022-02-27] MEDS: oxyCODONE HCl Immed Release 5 MG TABLET 10 MG PO ×3 (03:10→16:55)
[2022-02-27 06:17] LABS: MANUAL DIFF FLAG NO
[2022-02-27 06:20] LABS: Basophils Percent Auto 0.3 % (0-2); Eosinophils Absolute Auto 0.1 X10*3/uL (0.0-0.4); Eosinophils Percent Auto 0.4 % (0-4); Hematocrit 34.2 % (37.0-47.0); Hemoglobin 11.1 g/dl (12.0-16.0); Imm Gran Abs Auto 0.06 X10*3/uL (0.00-0.03); Imm Gran Pct Auto 0.5 % (0.0-0.4); Lymphocytes Percent Auto 16.9 % (20-40); Mean Corpuscular HGB Conc 32.5 g/dl (31.0-35.0); Mean Corpuscular Hemoglobin 29.2 pg (27.0-33.0); Mean Platelet Volume 10.2 fL (9.4-12.3); Monocytes Absolute Auto 1.1 X10*3/uL (0.1-1.2); Monocytes Percent Auto 8.9 % (2-11); Neutrophils Absolute Auto 8.8 x10*3/uL (2.0-8.3); Platelet Count 309 X10*3/uL (160-400); Red Cell Distribution Width 14.3 % (11.0-16.0)
[2022-02-27 06:41] LABS: Anion Gap 9 (12-20); Blood Urea Nitrogen 11 mg/dL (9-16); Calcium 8.5 mg/dL (8.4-10.2); Carbon Dioxide 28 mmol/L (22-29); Chloride 105 mmol/L (96-108); Creatinine Clr Calc Pharmacy 66.6; Estimated Glomerular Filt Rate > 60; Glucose Fasting 96 mg/dL (60-99); Potassium 3.9 mmol/L (3.3-5.1); Sodium 138 mmol/L (135-145)
[2022-02-27 08:00] VITALS: BP 140/60; PULSE 91; RESP 18; TEMP 37.5; O2SAT 97
[2022-02-27] MEDS: Celecoxib 200 MG CAPSULE PO ×2 (08:38→21:04)
[2022-02-27] MEDS: oxyCODONE HCl ER 10 MG TAB.ER.12H PO ×2 (08:39→21:04)
--- NOTE | 2022-02-27 09:15 | PM.PNORT ---
Subjective Subjective Date of Service: 02/27/22 Interval history: POD1 s/p LTHA. Pain is managed. Patient complains of muscle spasms in buttocks. No overnight events. No additional complaints. Physical Exam Vital Signs: Vital Signs: Last Vital Signs Temp 99.5 F 02/27/22 08:00 Pulse 91 02/27/22 08:00 Resp 18 02/27/22 08:00 BP 140/60 H 02/27/22 08:00 Pulse Ox 97 02/27/22 08:00 O2 Del Method 02/27/22 03:08 O2 Flow Rate 3 02/26/22 12:25 BMI result Body Mass Index 31.6 Extrem: Other: Left hip Aquacel is c/d/i. Able to doriflex and plantarflex. NVI. Procedures Date of Service Date of Service: 02/27/22 Progress Note: A&P Assessment and plan (1) S/P total left hip arthroplasty: Status: Acute Assessment and Plan: Continue pain mgmnt Begin ASA for dvt ppx begin PT for LTHA Dispo planning-Pending PT eval, pain mgmnt Time Spent With Patient Time: Total time managing care of this patient today ____ minutes. Quality Stroke Does the patient have a stroke diagnosis?: No VTE Prior VTE?: No VTE Risk Level:: Medical - moderate - high VTE Device Contraindication: N/A - Device Ordered VTE Drug Contraindication: N/A - Med Ordered
[2022-02-27] MEDS: Aspirin 325 MG TABLET PO ×2 (10:16→21:04)
[2022-02-27 11:49] VITALS: BP 117/58; PULSE 83; RESP 20; TEMP 37.2; O2SAT 96
--- NOTE | 2022-02-27 14:43 | MHC.CM.PN ---
PATIENT IS INDEPENDENT WITH ADLS SHE DOES USE A CANE AND WALKER WHEN NEEDED. COVID VACCINATED AND BOTH BOOSTERS. HCP ON FILE AND VERIFIED. NO SERVICES IN THE HOME. PATIENT REQUESTS A REFERRAL TO [facility], NOW PLACED. IMM 02/27 IN CHART
--- NOTE | 2022-02-27 15:29 | MHC.CM.PN ---
PATIENT IS AWARE THAT HER ONLY CHOICE OF REHAB ([facility]) IS NOT CONTRACTED WITH INSURANCE PLAN.
[2022-02-27 16:00] VITALS: BP 117/58; PULSE 89; RESP 16; TEMP 37; O2SAT 94
[2022-02-27 20:00] VITALS: BP 138/64; PULSE 92; RESP 16; TEMP 37.7; O2SAT 96
[2022-02-27 23:53] VITALS: BP 116/56; PULSE 85; RESP 18; TEMP 37.2; O2SAT 94
[2022-02-28 04:00] VITALS: BP 134/64; PULSE 84; RESP 18; TEMP 36.9; O2SAT 94
[2022-02-28] MEDS: oxyCODONE HCl Immed Release 5 MG TABLET 10 MG PO (06:20)
[2022-02-28] MEDS: Lactated Ringers 1,000 ML 100 ML IVCONT (06:22)
[2022-02-28 06:58] LABS: Anion Gap 13 (12-20); Blood Urea Nitrogen 8 mg/dL (9-16); Calcium 8.5 mg/dL (8.4-10.2); Carbon Dioxide 26 mmol/L (22-29); Chloride 106 mmol/L (96-108); Creatinine Clr Calc Pharmacy 76.7; Estimated Glomerular Filt Rate > 60; Glucose Fasting 91 mg/dL (60-99); Potassium 4.2 mmol/L (3.3-5.1); Sodium 141 mmol/L (135-145)
[2022-02-28 07:35] LABS: Hematocrit 33.4 % (37.0-47.0); Hemoglobin 10.6 g/dl (12.0-16.0)
[2022-02-28 07:50] VITALS: BP 130/65; PULSE 84; RESP 20; TEMP 37.1; O2SAT 97
--- NOTE | 2022-02-28 08:10 | HO.POSTANES ---
Post Anesthesia Evaluation Post Anesthesia Evaluation Vital Signs: Vital Signs Temp Pulse Resp BP Pulse Ox O2 Del Method 02/28/22 07:50 98.7 F 84 20 130/65 97 Room Air 02/28/22 04:00 98.4 F 84 18 134/64 94 Room Air 02/27/22 23:53 99 F 85 18 116/56 L 94 Room Air Anesthesia: General Mental Status: Awake Pain Control: Satisfactory Nausea/Vomiting: None Hydration: Adequate Anesthesia-Related Issues: No Anes. Related Issues
[2022-02-28] MEDS: Aspirin 325 MG TABLET PO (09:28)
[2022-02-28] MEDS: oxyCODONE HCl ER 10 MG TAB.ER.12H PO (09:29)
[2022-02-28] MEDS: Celecoxib 200 MG CAPSULE PO (09:30)
[2022-02-28 09:48] VITALS: BP 130/65; PULSE 84; O2SAT 97
--- NOTE | 2022-02-28 10:17 | MHC.CM.PN ---
PATIENT ASKS THIS LEAD APPLIER TO REFER OT MELVINA ENAMORADO. FACILITY IS OFFERING AND ASKED TO START THE AUTHORIZATION PROCESS. PATIENT AWARE. VANTAGE OF SABINA MEEHAN ALSO AWARE .
--- NOTE | 2022-02-28 10:35 | P.DS_ITS ---
DS: Providers Provider Date of Service: 02/28/22 Date of admission: 02/26/22 07:03 Primary care physician: Alecia Seo NP Consults: 02/26/22 12:42 Consult to Hospitalist Routine Consulting Provider: Hospitalist Reason For Exam: routine medical managment DS: Diagnosis Discharge Diagnosis (1) S/P total left hip arthroplasty: Status: Acute DS: Summary Hospital Course Hospital Course: The patient underwent a successful left total hip arthroplasty, was transferred to PACU and then to the floor to recover. During their stay, their vitals were stable, afebrile at 98.7 . Labs were unremarkable, H/H 10.6/33.4. POD 1 she was started on ASA 325mg tabs po bid for DVT ppx, they also received services twice a day. Prior to discharge, their dressing was change, incision clean dry and intact, new Aquacel dressing applied and the plan was to be discharged to [facility]. Post op appt: 03/13/22 12:15 [facility] Christiane Heart PA-C Time Spent with Patient Time attestation: Total time managing care of this patient today ____ minutes. Discharge coordination time: Less than 30 minutes Quality: Safe Use of Opioids Does Pt have an Active Cancer Diagnosis on the Problem List?: No Quality: Stroke Does the patient have a stroke diagnosis?: No Physical Exam Vital Signs: Vital Signs: Last Vital Signs Temp 98.7 F 02/28/22 07:50 Pulse 84 02/28/22 09:48 Resp 20 02/28/22 07:50 BP 130/65 02/28/22 09:48 Pulse Ox 97 02/28/22 09:48 O2 Del Method 02/28/22 07:50 O2 Flow Rate 3 02/26/22 12:25 BMI result Body Mass Index 31.6 Extrem: Other: Left hip Aquacel is c/d/i. Able to doriflex and plantarflex. NVI. DS: Data Data Completed and Pending Completed studies during hospitalization [Text1]: Pending at discharge 02/26/22 09:58 Surgical [PTH] Routine Labs on day of discharge: Laboratory Results - last 24 hr 02/28/22 02/28/22 05:38 05:38 Hgb 10.6 L Hct 33.4 L Sodium 141 Potassium 4.2 Chloride 106 Carbon Dioxide 26 Anion Gap 13 BUN 8 L Creatinine 0.60 Estim Creat Clear Calc 76.7 Estimated GFR > 60 Fasting Glucose 91 Calcium 8.5 Discharge Plan Discharge Anticipated Discharge Date/Time: 02/28/22 10:37 Patient Disposition: Xfer SNF Discharge Diagnosis: S/P LT BRAYAN Referrals: Christiane Heart PA-C [Physician Cotton Grower] - 2 Weeks (03/13/22 2:15 [facility] Christiane Heart PA-C) Discharge Medications: New oxycodone 5 mg Tablet 5 mg PO Q4H PRN (Reason: Pain, Moderate (Pain Scale 4-6) 7 Days Qty: 42 0RF Rx Instructions: Partial Fill upon patient request. aspirin 325 mg Tablet 325 mg PO BID 42 Days Qty: 84 0RF celecoxib 200 mg Capsule 200 mg PO BID 14 Days Qty: 28 0RF acetaminophen 325 mg Tablet 650 mg PO Q6H PRN (Reason: Pain, Mild (Pain Scale 1-3)) 30 Days Qty: 240 0RF [facility] See [facility] Instructions .MEDSUPPLY Qty: 1 0RF Rx Instructions: Folding Front wheeled walker (DME) Raised toilet seat See Rx Instructions .ROUTE .MEDSUPPLY Qty: 1 0RF Rx Instructions: As directed PreserVision AREDS-2 250-90-40-1 mg Capsule 1 tab PO BID lidocaine HCl [Aspercreme (lidocaine HCl)] 4 % cream 1 appl topical BID PRN (Reason: Pain) ergocalciferol (vitamin D2) 1,250 mcg (50,000 unit) capsule 1,250 mcg PO QWEEK Discontinued naproxen sodium [Aleve] 220 mg tablet 220 mg PO BID PRN (Reason: Pain) acetaminophen 650 mg tablet extended release 1,300 mg PO DAILY PRN (Reason: Pain) Discharge Orders: Discharge Order (Routine); Ordered 02/28/22 Ordered By: Jenelle Michaels Diet: Regular diet Activity on Discharge: Use cane or walker Stand Alone Forms: Patient Portal Discharge page Care Plan Goals: Restore function of joint Health Concerns: none Plan of Treatment: Physical Therapy Pain management DVT prophylaxis Assessment: * Physical Therapy for Total hip arthroplasty: wbat, posterior precautions, gait training, ROM, strength * Limit stair climbing * No showering, no tub bath-keep dressing clean, dry and intact * No driving x6 weeks * Continue Aspirin twice a day x 6 weeks * Follow up with [facility] Orthopedics in 2 weeks: 03/13/2313:15 [facility] SurgeonsChristiane Heart PA-C * --you will also have your first out patient PT eval on the day of your post op appt-so please plan on being in the office that day for an extended period of time.
--- NOTE | 2022-02-28 10:53 | MHC.CM.PN ---
MOHSEN AGREES TO 2 PM TRANSPORT TO [facility] PATIENT, UNIT, AND RN AWARE
[2022-02-28 11:51] VITALS: BP 121/58; PULSE 91; RESP 18; TEMP 37; O2SAT 95
== END 2022-02-28 14:47 | disposition skilled nursing facility (03) | DRG 470 ==
LOC: HO.SSSA 07:06 → HO.S3 11:43
PROVIDERS: Physician Assistant; Admitting Provider Orthopaedic Surgery; PCP Nurse Practitioner Primary Care; Visit Provider Orthopaedic Surgery
PROC: 0SRB03A Replacement of Left Hip Joint with Ceramic Synthetic Substitute, Uncemented, Open Approach (ICD-10-PCS; CPT 27130; principal; 2022-02-26 09:10)
DX: M16.12 Unilateral primary osteoarthritis, left hip (principal); K21.9 Gastro-esophageal reflux disease without esophagitis; Z20.822 Contact with and (suspected) exposure to COVID-19; Z79.899 Other long term (current) drug therapy
CPT/HCPCS: 36415; 72170; 80048; 85014; 85018; 85025; 86850; 86900; 86901; 87635; 87640; 87641; 88304; 88311; 97110; 97116; 97162; 97165; 97530; 97535; C1776; J0131; J0690; J1100; J1170; J1885; J2405; J2550; J2795; J3010

== ENCOUNTER → 2022-03-13 14:05 | Outpatient (BNVA) | payer MEDICARE, SELFPAY | PROVIDERS: PCP Nurse Practitioner Primary Care; Visit Provider Physician Assistant | DX: Z13.89 Encounter for screening for other disorder (principal) ==

== ENCOUNTER 2022-04-03 14:52 | Outpatient (REF) | payer MEDICARE, SELFPAY ==
--- NOTE | ~2022-04-03 | XR_ITS ---
EXAMINATION: XR pelvis 1-2V CLINICAL INFORMATION: Reason for Exam M25.559 - Pain in unspecified hip COMPARISON: Pelvic radiographs 02/26/2022 TECHNIQUE: 1 view of the pelvis FINDINGS: No acute fracture or dislocation within limitations of a single view. Status post left total hip arthroplasty in anatomic alignment. No evidence of hardware fracture or complication. Mild degenerative changes of the right hip with degenerative spurring. Numerous calcified phleboliths in the pelvis. XR/XR pelvis 1-2V IMPRESSION: No acute osseous abnormality. Status post left total hip arthroplasty. No evidence of hardware fracture or complication. Mild degenerative changes of the right hip.
== END 2022-04-03 14:53 | disposition home or self-care (01) ==
LOC: HO.HOSX 14:52
PROVIDERS: Visit Provider Physician Assistant
DX: Z96.642 Presence of left artificial hip joint (principal)
CPT/HCPCS: 72170

== ENCOUNTER 2022-05-15 12:11 | Outpatient (REF) | payer MEDICARE, SELFPAY ==
--- NOTE | ~2022-05-15 | XR_ITS ---
EXAMINATION: Pelvis and left hip x-ray CLINICAL INFORMATION: Post left hip replacement COMPARISON: Previous x-ray most 02/26/2022 TECHNIQUE: AP view of the pelvis. AP and shoot through lateral view of the left hip. FINDINGS: There is a new left hip replacement in satisfactory position. No fracture or dislocation. The right hip joint is normal. Bones of the pelvis are normal. There are mild degenerative changes of the lower lumbar spine. Soft tissues are unremarkable. XR/XR hip LT 1V IMPRESSION: Satisfactory appearance of left hip replacement.
--- NOTE | ~2022-05-15 | XR_ITS ---
EXAMINATION: Pelvis and left hip x-ray CLINICAL INFORMATION: Post left hip replacement COMPARISON: Previous x-ray most 02/26/2022 TECHNIQUE: AP view of the pelvis. AP and shoot through lateral view of the left hip. FINDINGS: There is a new left hip replacement in satisfactory position. No fracture or dislocation. The right hip joint is normal. Bones of the pelvis are normal. There are mild degenerative changes of the lower lumbar spine. Soft tissues are unremarkable. XR/XR pelvis 1-2V IMPRESSION: Satisfactory appearance of left hip replacement.
== END 2022-05-15 12:12 | disposition home or self-care (01) ==
LOC: HO.HOSX 12:11
PROVIDERS: Visit Provider Orthopaedic Surgery
DX: T84.84XA Pain due to internal orthopedic prosthetic devices, implants and grafts, initial encounter (principal); M24.552 Contracture, left hip; Z96.642 Presence of left artificial hip joint
CPT/HCPCS: 72170; 73501; 73502

== ENCOUNTER → 2022-06-12 15:25 | Outpatient (BNVA) | payer MEDICARE, SELFPAY | PROVIDERS: PCP Nurse Practitioner Primary Care; Visit Provider Student in an Organized Health Care Education/Training Program | DX: M16.12 Unilateral primary osteoarthritis, left hip (principal); R76.8 Other specified abnormal immunological findings in serum; M80.00XD Age-related osteoporosis with current pathological fracture, unspecified site, subsequent encounter for fracture with routine healing | CPT/HCPCS: 99212 ==

== ENCOUNTER 2022-08-14 11:56 | Outpatient (REF) | payer MEDICARE, SELFPAY | END 2022-08-14 11:57 | disposition home or self-care (01) | LOC: HO.HOSX 11:56 | PROVIDERS: Visit Provider Orthopaedic Surgery | DX: M79.2 Neuralgia and neuritis, unspecified (principal); Z96.642 Presence of left artificial hip joint | CPT/HCPCS: 72170; 73501; 73502; 99212 ==

== ENCOUNTER 2022-11-25 15:44 | Outpatient (AMB) | payer MEDICARE, SELFPAY ==
[2022-11-25 15:50] VITALS: BP 128/72; PULSE 74; TEMP 36.8; O2SAT 96; BMI 33.2
--- NOTE | 2022-11-25 15:50 | MHC.OFFVIS ---
Intake Vital Signs 11/25/22 15:50 Height 5 ft 1 in Weight 175 lb 14.862 oz BMI 33.2 BP 128/72 Blood Pressure Location Rt brachial Position Sitting Pulse 74 Pulse Source Pulse Oximeter Temp 98.2 F Temp Source Skin Pulse Oximetry (%) 96 Intake Visit Reasons: osteoporosis Intake Note: Pt seen today for osteoporosis follow up. In the process of dental work. Reports increased in in stiffness. 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 States that she has become a little bit more stiff recently. Increased stiffness in her lower back, her knees and hips especially when getting up after sitting down for some time. States that she gets little bit more fatigued with line dancing. States that she has 2 that need to be extracted and a dental implant that has to be done in the near future. Initial history: 76-year-old female with a past medical history of GERD, chronic lymphedema presents for evaluation of chronic Lyme disease. The condition started in 2019 with severe fatigue. At that point she went to her PCP and requested full evaluation which revealed positive Lyme serologies. She received 2 courses of antibiotics with some improvement. However around September 2020 she noticed having left knee pain as well as weakness beyond her right knee. At that point she went to [facility] [place] and received multiple supplements with some relief. She never saw a facilities maintenance assistant. Currently patient's main complaint is generalized fatigue as well as left thigh pain. The pain is worse with certain movements such as bending forward. She denies any pain in her neck, arms, shoulders, hands, denies joint swelling. Denies pain in the right knee , ankles or feet. She denies any fever, weight loss, blood in urine, Raynaud's, skin rashes. [facility] Medical History Lumbar radiculopathy Family history of anesthesia complication Arthritis Arthritis of left hip Positive Lyme disease serology Encounter for screening for viral disease Myopathy Fatigue Osteoarthritis of left hip Lymphedema Macular degeneration GERD (gastroesophageal reflux disease) Surgical History Hx of tonsillectomy History of esophagogastroduodenoscopy (EGD) H/O colonoscopy H/O: hysterectomy Family History Mother Lung cancer Father Lung cancer Social History Household Members Other:: lives alone Housing: House Are you a primary associate director career services to a significant other at home: No Do you presently have visiting nurse or other home services: No 75 years or older and lives alone: No Alcohol intake: current Alcohol intake frequency: holidays/special occasions only Alcohol type: hard liquor Patient Tobacco Use Status: Never used Tobacco e-Cigarette/Vaping Use: Never Used service: No Current occupational status: retired 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 Normal nailfold capillaroscopy. Negative straight leg raise test bilaterally Normal range of motion of both knees without pain Lymphedema both lower extremities Results Reviewed Results Reviewed: Reviewed left hip, left knee, and lumbosacral x-rays done in August 2021 Reviewed positive Lyme serology with positive IgG immuno blot, more than 5 bands positive Assessment & Plan Assessment & Plan (1) Osteoporosis with pathological fracture: Code(s): M80.00XA - Age-related osteoporosis with current pathological fracture, unspecified site, initial encounter for fracture Qualifiers: Encounter type: initial encounter Qualified Code(s): M80.00XA - Age-related osteoporosis with current pathological fracture, unspecified site, initial encounter for fracture Plan: Reviewed patient's bone density scan report. Which showed osteopenia T-score-2.3 in the right femoral neck. Patient already developed a left hip subchondral fracture which is likely and osteoporotic fragility fracture. Will need to start antiresorptive agents. Patient however is in the process of getting dental work. She has appointments for 2 dental extractions and 1 implant. Advised patient to follow-up with her PCP after dental implants are healed and consider starting antiresorptive therapy such as alendronate Follow-up as needed Plan I spent 15 minutes reviewing patient's chart, evaluating patient, counseling patient and documenting in the chart Coding Level of Care Code Est Pt Level 3 (58365) Diagnoses Osteoporosis with pathological fracture, initial encounter M80.00XA Encounter type: initial encounter
== END 2022-11-25 16:08 | disposition home or self-care (01) ==
PROVIDERS: PCP Nurse Practitioner Primary Care; Visit Provider Student in an Organized Health Care Education/Training Program
DX: M80.00XA Age-related osteoporosis with current pathological fracture, unspecified site, initial encounter for fracture (principal)
CPT/HCPCS: 99213

== ENCOUNTER → 2022-11-25 15:44 | Outpatient (BNVA) | payer MEDICARE, SELFPAY | PROVIDERS: PCP Nurse Practitioner Primary Care; Visit Provider Student in an Organized Health Care Education/Training Program | DX: M80.00XA Age-related osteoporosis with current pathological fracture, unspecified site, initial encounter for fracture (principal) | CPT/HCPCS: 99212 ==

== ENCOUNTER 2024-02-09 09:18 | Outpatient (REF) | payer MEDICARE, SELFPAY ==
--- NOTE | ~2024-02-09 | MM_ITS ---
EXAMINATION: BONE DENSITOMETRY CLINICAL INDICATION: Encounter for screening for osteoporosis. COMPARISON: This is the patient's baseline examination. TECHNIQUE: Using a [employer] DXA System (software version: 13.1) manufactured by [employer], dual-energy x-ray absorptiometry was performed of the lumbar spine and right hip. The images are of good technical quality. Summary results are attached. FINDINGS: RIGHT FEMUR, NECK: BMD 0.684 g/cm2, Z-score -0.9, T-score -2.5, osteoporosis. RIGHT FEMUR, TOTAL: BMD 0.658 g/cm2, Z-score -1.3, T-score -2.8, osteoporosis. AP SPINE L1-L4: BMD 0.890 g/cm2, Z-score -1.1, T-score -2.4, osteopenia. IDENTIFIED RISK FACTORS: Menopause, history of fracture (adult). HISTORY OF FRACTURE: Hip. MEDICATIONS: Vitamin D. MM/XR DEXA axial skeleton IMPRESSION: 1. DIAGNOSIS: Severe osteoporosis based on the lowest T-score value of -2.8 in the total femur and history of a hip fracture applying World Health Organization criteria. 2. 10-YEAR FRACTURE RISK PREDICTION, FRAX: According to the guidelines, FRAX calculation should only be performed on patients in the osteopenia bone density category. Therefore, FRAX was not performed on this patient. 3. Treatment Recommendations: NOF guidelines recommend consideration for treatment in postmenopausal women and men age 50 and older presenting with the following: -A hip or vertebral (clinical or morphometric) fracture. -T-score less than or equal to -2.5 at the femoral neck or spine after appropriate evaluation to exclude secondary causes. -Low bone mass at the hip or spine and a 10-year fracture probability by FRAX of greater than or equal to 3% for hip fracture or greater than or equal to 20% for major osteoporotic fracture based on the [place] adapted WHO algorithm. 4. Other Recommendations: All treatment decisions require clinical judgment and consideration of individual patient factors, including patient preferences, comorbidities, previous drug use, risk factors not captured in the FRAX model (e.g. frailty, falls, vitamin D deficiency, increased bone turnover, interval significant decline in bone density) and possible under or overestimation of fracture risk by FRAX. Additional medical evaluation for secondary cause of low bone mineral density may be appropriate. FUTURE SCAN RECOMMENDATION: People with diagnosed cases of osteoporosis or at high risk for fracture should have regular bone mineral density tests. For patients eligible for Medicare, routine testing is allowed once every 2 years. The testing frequency can be increased to one year for patients who have rapidly progressing disease, those who are receiving or discontinuing medical therapy to restore bone mass, or have additional risk factors. Electronically signed by: Xu Ocasio MD 02/09/2024 01:37 PM JINA MARTINES
--- OUTSIDE RECORDS SUMMARY | 2024-02-09 09:23 | XMS_ITS | Data Portability ---
Author Organization [facility] Home Service Address [address] [place] [address] Assessment Encounter Date Assessment Date Assessment LastModified by Organization Details LastModified Time 01/05/2018 01/05/2018 A TOTAL OF 40 MINUTES WAS SPENT FACE TO FACE Not available 01/05/2018 17:03:12 04/17/2020 04/17/2020 [id number] [place] [id number] (ENTREPRENEUR) MDM MODERATE MUST MEET 2 OUT OF 3 ELEMENTS: PROBLEMS, DATA OR RISK ELEMENT 1: PROBLEMS ADDRESSED OR OR OR 1 ACUTE ILLNESS W/SYMPTOMS OR ELEMENT 2: DATA MUST MEET 1 OF 3 CATEGORIES CATEGORY 1: REVIEW OF PRIOR EXTERNAL NOTES, REVIEW OF RESULTS, ORDERING OF EACH TEST, ASSESSMENT REQUIRING INDEPENDENT HISTORIAN OR CATEGORY 2: OR CATEGORY 3: ELEMENT 3: RISK RISK OF COMPLICATIONS AND/OR MORBIDITY OR MORTALITY OF PATIENT MANAGEMENT PROVIDER MUST THOROUGHLY DOCUMENT EACH ELEMENT THAT IS COVERED [email or web address] Not available 04/17/2020 18:10:58 Plan of Treatment Reminders Order Date Submit Date Provider Last Modified By Organization Details Last Modified Time Details Appointments None recorded. Lab urinalysis , reflex culture 2017 018 [facility], [address] [place] [address], [id number], 8 17:24:52 ESR (erythrocy te sedimentat ion rate), blood 2017 018 [facility], [address] [place] [address], [id number], 8 17:24:52 C reactive protein, QN, serum or plasma 2017 018 [facility], [address] [place] [address], [address], 8 17:24:52 CMP, serum or plasma 2017 018 [facility], [address] [place] [address], [address], 8 17:24:52 vitamin D, 25-hydroxy , total, serum 2019 020 [facility], [address] [place] [address], [address], 0 12:03:32 vitamin D, 25-hydroxy , total, serum 2019 021 [facility], [address] [place] [address], [address], 0 12:03:32 CMP, serum or plasma 2020 021 RENATE Not available 1 11:52:09 vitamin D, 25-hydroxy , total, serum 2020 021 [facility], [address] [place] [address], [address], 1 11:52:10 TSH + free T4, serum 2020 021 [facility], [address] [place] [address], [address], 1 11:52:10 CBC w/ auto diff 2020 021 [facility], [address] [place] [address], [address], 1 11:52:10 iron + TIBC + ferritin, serum 2020 021 [facility], [address] [place] [address], [address], 1 11:52:10 vitamin B12 + folate, serum or blood 2020 021 [facility], [address] [place] [address], [address], 11:52:10 ESR (erythrocy te sedimentat ion rate), blood 2020 [facility], [address] [place] [address], [address], 14:11:22 C-reactive protein, quantitati ve, serum or plasma 2020 [facility], [address] [place] [address], [address], 14:11:21 lyme disease igg+igm, serum, reflex western blot 2020 [facility], [address] [place] [address], [address], 11:52:56 ERIK + rf (antinucle ar antibodies + rheumatoid factor), quantitati ve, serum 2020 [facility], [address] [place] [address], [address], 11:57:05 Referral gastroente rologist referral - gerd with chronic cough, lower abdominal pain with stool caliber changes, chronic poor vitamin d absorption 2017 018 ana Stuart MD, [address] [facility], [place], [address], 8 09:31:47 dermatolog ist referral 2019 [facility]20 [facility], [address], [place], [address], 0 08:14:15 integrativ e medicine referral 2020 021 [facility], [address] [place], [place] [address], [place], [address], 1 09:46:34 Procedures None recorded. Surgeries None recorded. Imaging CT, abdomen + pelvis, w/ contrast - lower abdominal pain, stool caliber changes, family history of ovarian cancer 2017 018 jvanasse Not available 8 08:38:25 US, echocardio gram 2020 021 hrubner Not available 1 08:38:28 Medication Orders doxycyclin e hyclate 100 mg tablet 2019 020 sbucko [id number], [address] [place], [address], 13:50:56 Patient TargetsNo targets recorded. 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 Manager Referral for S weat gland cyst patient has skin tags she would like to be removed Referring Physician: Aixa Meade, Internal Medicine, Encounter Date: 09/13/2019 Integrative Medicine Referra l for History of Lyme disease weakness and fatigue after diagnosis of lyme disease, no improvement on two courses of doxy Referring Physician: Aixa Meade, Internal Medicine, Encounter Date: 04/17/2020 Results Created Date Observation Date Name Description Value Unit Range Abnormal Flag Note LastModifiedBy Organization Detail LastModifiedTime 10/07/19 20 10/07/2019 US, knee No observ ation record ed. [facility] [address], [place], [address], 10/11/2019 09:19:31 05/11/19 21 05/10/2020 US, echoc ardio gram No observ ation record ed. [facility] [address] [place] [address], [address], 05/11/2020 10:38:32 05/31/19 22 05/30/2021 bone densi ty No observ ation record ed. [email or web address] Not Available 2021 11:11:10 Result Notes None recorded. Problems Name Problem SNOMED Code Status Onset Date Resolution Date Notes Provider Name and Address Organization Details Recorded Time Gastroesophag eal reflux disease without esophagitis 078937129 Active 2017 Not Available [facility] 2 23:56:05 Degenerative disorder of macula 401406759 Active 2017 Not Available [facility] 2 23:56:05 Vitamin D deficiency 78937564 Active 2017 Not Available [facility] 2 23:56:05 Wolfgang thyroiditis 15762474 Active 2017 Not Available [facility] 2 23:56:05 History of hysterectomy 159513468 Active 2017 Not Available [facility] 2 23:56:05 Multinodular goiter 658538059 Active 2017 Not Available [facility] 2 23:56:05 Problem Notes None recorded. Procedures Surgical History Date Name Laterality Status Provider Name and Address Organization Details Recorded Time 9 Colonoscopy completed [facility] 05/03/2018 13:48:37 Imaging Results Imaging Date Name Status LastModified by Organization Details LastModified Time 10/07/2019 US, knee completed [facility] [address] [place] [address], [address], 10/11/2019 09:19:31 05/10/2020 US, echocardiogram completed [facility], [address], 05/11/2020 10:38:32 05/30/2021 bone density completed Information not available 05/31/2021 11:11:10 Procedure Notes None recorded. Medical Equipment None Reported. Allergies No known drug allergies Medications Name Sig Start Date Stop Date Status Note LastModified by Organization Details LastModified Time ergocalcife rol (vitamin D2) 1,250 mcg (50,000 unit) capsule TAKE 1 CAPSULE BY MOUTH ONE TIME PER WEEK active Not Available Not Available No t Available doxycycline hyclate 100 mg tablet TAKE 1 TABLET(S) BY MOUTH TWICE A DAY WITH MEALS FOR 14 DAYS. 04/17 completed Not Available Not Available Not Available Pneumovax-2 3 25 mcg/0.5 mL injection syringe [facility] 01/19 completed Not Available Not Available Not Available magnesium active OTC Not Available Not Sallie ilable Not Available PreserVisio n AREDS active OTC Not Available Not Available Not Available cholecalcif kalpana (vitamin D3) 1,250 mcg (50,000 unit) capsule Take 1 capsule(s ) every week by oral route. 09/12 completed Not Available Not Available Not Available Vitamin D3 50 mcg (2,000 unit) capsule 1 qd 09/12 completed Not Available Not Available Not Available Fluad Quad (6 5yr up)(PF) 60 mcg (15 mcg x 4)/0.5mL IM syringe [facility] 01/19 completed Not Available Not Available Not Available Vitals Date Recorded Body height Body mass index (BMI) Body weight Heart rate Oxygen saturation Oxygen saturation in Arterial blood by Pulse oximetry Systolic blood pressure Diastolic blood pressure Provider Name and Address Organization Details Last Updated DateTime 0 153.67 cm 36.8 kg/m2 57573.9 4 g 70 /min 98 % 98 % 128 mm[Hg] 80 mm[Hg] Selin St [facility] 0 11:13:58 Date Recorded Body height Heart rate Oxygen saturation Oxygen saturation in Arterial blood by Pulse oximetry Systolic blood pressure Diastolic blood pressure Provider Name and Address Organization Details Last Updated DateTime 0 153.67 cm 70 /min 95 % 95 % 122 mm[Hg] 82 mm[Hg] Nivia Jean [facility] 0 14:02:15 Date Recorded Body height Body mass index (BMI) Body weight Heart rate Oxygen saturation Oxygen saturation in Arterial blood by Pulse oximetry Systolic blood pressure Diastolic blood pressure Provider Name and Address Organization Details Last Updated DateTime 1 153.67 cm 37 kg/m2 55933.8 9 g 84 /min 97 % 97 % 112 mm[Hg] 82 mm[Hg] Carmelita Peoples [facility] 1 13:53:07 Date Recorded Body height Body mass index (BMI) Body weight Oxygen saturation Oxygen saturation in Arterial blood by Pulse oximetry Heart rate Systolic blood pressure Diastolic blood pressure Provider Name and Address Organization Details Last Updated DateTime 2 153.67 cm 35.7 kg/m2 51836.1 8 g 97 % 97 % 82 /min 130 mm[Hg] 78 mm[Hg] June Landaverde [facility] 2 13:56:31 Date Recorded Body height Body mass index (BMI) Body weight Body temperature Heart rate Oxygen saturation Oxygen saturation in Arterial blood by Pulse oximetry Systolic blood pressure Diastolic blood pressure Provider Name and Address Organization Details Last Updated DateTime 8 153.67 cm 31.5 kg/m2 11583.4 3 g 98.2 [degF] 61 /min 97 % 97 % 116 mm[Hg] 80 mm[Hg] Carmelita Peoples [facility] 8 16:21:27 Social History Question Answer Notes LastModified by Organizat ion Details LastModified Time Tobacco Smoking Status Never Smoker Carmelita abreu [facility] 04/17/2020 13:51:31 What Was The Date Of Your Most Recent Tobacco Screening? 05/07/2021 Information not available 05/07/2021 Sex: Unknown Functional Status None recorded. Mental Status None recorded. Family History Nothing Reported. Medical History No medical history recorded. Gynecological HistoryNo gynecological history recorded. Obstetrics History GPAL:G 0 P 0 0 0 0 Immunizations Vaccine Type Date Status Note Provider Nam e and Address Organization Details Recorded Time Influenza, split virus, quadrivalent, preservative 2 completed Not Available [facility] 08/28/2021 23:56:05 Pneumococcal conjugate PCV 13 9 completed Not Available [facility]/28/2021 23:56:05 Influenza, split virus, quadrivalent, preservative 9 completed Not Available [facility] 08/28/2021 23:56:05 Past Encounters Encounter ID Performer Location Encounter Start Date Encounter Closed Date Diagnosis/Indication Diagnosis SNOMED-CT Code Diagnosis ICD10 Code [id number] May CAITY Downey [facility] [address] [place] [address] 01/05/2018 16:12:55 01/05/2018 17:04:36 Gastroesophageal reflux disease 612340741 K21.9 Chronic cough 59637408 R 05 Lipedema 943033206 R60.9 Vitamin D deficiency 347 24219 E55.9 Lower abdominal pain 545 67195 R10.30 [id number] COLE WILSON [facility] [address] [place] [address] 09/13/2019 11:04:52 09/13/2019 12:08:44 Sweat gland cyst 97561696 L74.8 Wolfgang thyroiditis 21 961652 E06.3 Malodorous urine 2460546 01 R82.998 Acid reflux 968497727 K2 1.9 [id number] COLE WILSON [facility] [address] [place] [address] [place] [address] 01/20/2020 13:53:20 01/20/2020 15:05:56 Infection of tick bite 514865371 B99.9 Vitamin D deficiency 347 94725 E55.9 [id number] COLE WILSON [facility] [address] [place] [address] [place] [address] 04/17/2020 13:46:13 04/17/2020 14:26:21 Fatigue 41205393 R53.83 History of Lyme disease 992419101 Z86.19 Palpitations 55989884 R0 0.2 [id number] COLE WILSON [facility] [address] [place] [address] [place] [address] 05/07/2021 13:35:36 05/08/2021 16:32:50 Active or passive immunization 701921639 Z23 Fatigue 80815387 R53.83 Vitamin D deficiency 347 26840 E55.9 Osteoporosis 49438086 M8 1.0 Health Concerns Section Related Observation LastModified by Organization Detai ls LastModified Time None Recorded Concern Status LastModified by Organization Details LastModified Time None Recorded Advance Directives Directive None Recorded Payers Encounter Date Sequence Insurance Name Policy Number Policy De La Garza Covered Member ID De La Garza Member ID Guarantor Name 01/05/2018 1 [place] [employer] Marijane Patenaude [id number] Marijane Patenaude 09/13/2019 1 [place] [employer] Marijane Patenaude [id number] Marijane Patenaude 01/20/2020 1 [place] Marijane Patenaude [id number] Marijane Patenaude 04/17/2020 1 [place] [employer] Marijane Patenaude [id number] Marijane Patenaude 05/07/2021 1 [place] [employer] Marijane Patenaude [id number] Marijane Patenaude Notes Date Note Type Note Provider Name a nd Address Organization Details Recorded Time 01/05/2018 text/html 1. went to see joão sequeira as cosmetic surgeon because she wanted to have liposuction done. at that appointment she was told that liposuction could cause lympholipedema so she was sent to [facility] who did massage with some minor improvement. -she has been working on losing weight as well, but she has been unsuccessful at reducing the size of her lower extremities. she's lost about 35, close to 40 lbs at this point. -she is seeing chao lópez who is a lymph specialist, who wants her to have her liver function test prior to therapy 2. gerd with chronic cough - she saw gi and pulm, but she hasn't had any relief. and chronic cough. 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 she would like inflammatory markers checked. she does follow a low acid diet already 3. vitamin d def- had endo consult, was recommended to increase vitamin d intake 4. lower abdominal/pelvic she s/p hysterectomy. but she does have her ovaries and she has an aunt who had ovarian cancer. 5. bowel change - more narrow stools in the past month or 2. no black or bloody stools CAITY Patricia [address] [facility], [place], [address], [place] TIMOTHY [facility] 01/05/2018 17:03:17 09/13/2019 text/html c/o pain behind the right knee the patient brought in a list of concerns she would like to go over discussed with patient that we would be unable to go over all her problems at this appt as it is not feasible to appropriately and throughly go over everything she would like to talk about in a 15 minute SDV told patient to pick most concerning issues and we can go over a few of those one must include the reason for the same day visit PER PATIENT: ACID REFLUX: the patient has chronic acid reflux causing a chronic cough > has been evaluated by GI before with endoscopy where per pt they did not find anything concerning, just uncomplicated GERD the patient reports she was started on a trial of prilosec but did not find that it helped patient does not know what triggers her symptoms discussed GERD is often triggered by coffee, chocolate, citrus, and acid foods discussed with patient that tap water can also trigger it as well because tap water is actually acidic, not neutral recommend trial of alkaline water to see if cough improves the pt agrees with this as she endorses that after she drinks water she tends to cough also stated she can try pecid or tums when she is having acid reflux and see if that helps URINARY INCONTINENCE: the pt states that for the past few months she has been having urinary incontinence > states her urine has been more foul smelling than normal as well cannot give a urine sample in office as just urinated before her visit gave her a urine cup with instructions of how to perform a clean catch and to bring cup back in to be tested patient agrees HOT FLASHES/HEAT INTOLERANCE: the patient reports that she gets hot flashes > the patient reports that she has episodes of intense heat, inga during the summer she has been diagnosed in the past with wolfgang's thyroiditis per endo dr. white located in [place] discussed with pt since she is not currently on medication for thyroid she may need to start recommended getting into contact with dr. white to have a full assessment done with TSH test may need referral since she hasn't been seen by her in years will call her office first and see if she needs one SKIN TAGS: patient has skin tags she would like to be removed also endorse she has cysts on her sweat glands which she would like evaluated ROS: no chest pain, no sob, no fever, no sob, no abdominal pain, no change in bowel habits, no urinary frequency, no dysuria, no n/v/d COLE WILSON [address] [place], [address], [facility] 09/13/2019 21:44:41 01/20/2020 text/html c/o tick bite lump on the right side of the neck turns out it was a engorged tick bite with tick still intact COLE WILSON [address] [place], [address], [facility] 01/20/2020 14:18:01 04/17/2020 text/html fu lyme disease the patient reports she has been feeling she is very lethargic and weak since she had the lyme disease patient was treated with two courses of doxy after presenting to office with tick on the right side of her neck, for an unknown length of time the patient reports that she is going to sleep early and she is having trouble completely completing her walks around the neighborhood the patient just feels overall run down the patient has is not very specific with her symptoms, just kept repeating she has no power will do work up with BW and echo COLE WILSON [address] [place], [address], [facility] 04/17/2020 18:11:18 05/07/2021 text/html c/o weakness and generalized weakness evaluation the patient reports that she has had decreased energy, the patient reports she is also having a hard time with going up stairsthe patient reports right knee painalso reports tightness in the groin muscle, left sidethe patient reports that she has already done PT through this officethe patient reports that this was not helpful > she was in pain and had no strength the patient reports that she continued the exercises at home until the pain stopped the PT the patient is very upset at today's visitstates she is considering a new doctor COLE WILSON [address] [place] [address], [place], [address], [facility] 05/07/2021 14:30:01 OBGyn Episode No OBEpisode recorded.
== END 2024-02-09 09:19 | disposition home or self-care (01) ==
LOC: HO.MAMMO 09:18
PROVIDERS: Absent Provider Student in an Organized Health Care Education/Training Program; PCP Family Medicine; Visit Provider Family Medicine
DX: M81.0 Age-related osteoporosis without current pathological fracture (principal); Z78.0 Asymptomatic menopausal state
CPT/HCPCS: 77080

== ENCOUNTER 2024-06-23 13:00 | Outpatient (REF) | payer MEDICARE, SELFPAY ==
--- OUTSIDE RECORDS SUMMARY | 2024-06-23 14:05 | XMS_ITS | Data Portability ---
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 Lab CMP, serum or plasma 2020 RENATE Not available 11:52:09 vitamin D, 25-hydroxy , total, serum 2020 [facility], [address] [place] [address], [place], [address], 11:52:10 TSH + free T4, serum 2020 [facility], [address] [place] [address], [address], 11:52:10 CBC w/ auto diff 2020 [facility], [address] [place] [address], [address], 11:52:10 iron + TIBC + ferritin, serum 2020 [facility], [address] [place] [address], [address], 11:52:10 vitamin B12 + folate, serum or blood 2020 [facility], [address] [place] [address], [address], 11:52:10 ESR (erythrocy te sedimentat ion rate), blood 2020 [facility], [address] [place] [address], [address], 14:11:22 C-reactive protein, quantitati ve, serum or plasma 2020 [facility], [address] [place] [address], [address], 14:11:21 lyme disease igg+igm, serum, reflex western blot 2020 [facility], [address] [place] [address], [address], 11:52:56 ERIK + rf (antinucle ar antibodies + rheumatoid factor), quantitati ve, serum 2020 [facility], [address] [place] [address], [address], 11:57:05 vitamin D, 25-hydroxy , total, serum 2019 020 [facility], [address] [place] [address], [address], 0 12:03:32 vitamin D, 25-hydroxy , total, serum 2019 021 [facility], [address] [place] [address], [address], 0 12:03:32 urinalysis , reflex culture 2017 018 [facility], [address] [place] [address], [address], 8 17:24:52 ESR (erythrocy te sedimentat ion rate), blood 2017 018 [facility], [address] [place] [address], [address], 8 17:24:52 C reactive protein, QN, serum or plasma 2017 018 [facility], [address] [place] [address], [address], 8 17:24:52 CMP, serum or plasma 2017 018 [facility], [address] [place] [address], [place], [address], 8 17:24:52 Referral integrativ e medicine referral 2020 021 ana [facility], [address] [facility], [place], [address], 1 09:46:34 dermatolog ist referral 2019 020 ana [facility], [address], [place], [address], 0 08:14:15 gastroente rologist referral - gerd with chronic cough, lower abdominal pain with stool caliber changes, chronic poor vitamin d absorption 2017 018 ana Stuart MD, [address] [facility], [place], [address], 8 09:31:47 Procedures None recorded. Surgeries None recorded. Imaging US, echocardio gram 2020 021 hrubner Not available 08:38:28 CT, abdomen + pelvis, w/ contrast - lower abdominal pain, stool caliber changes, family history of ovarian cancer 2017 018 jvanasse Not available 8 08:38:25 Medication Orders doxycyclin e hyclate 100 mg tablet [address] [id number], [address] [place], [address], 13:50:56 Patient TargetsNo targets recorded. Patient Instructions Encounter Date Encounter Id Patient Instructions Last Modified By Organization Details Last Modified Time 01/05/2018 [id number] chronic cough: c are instructions Not available 01/05/2018 16:58:26 gastroesophageal reflux disease (GERD): care instructions Not available 01/05/2018 16:58:26 Reason for Referral Weatherization Technician Referral for Lower abdominal pain gerd with chronic cough, lower abdominal pain with stool caliber changes, chronic poor vitamin d absorption Referring Physician: [facility], Encounter Date: 01/05/2018 Director Of Hospitality Referral for S weat gland cyst patient [...] US, knee No observ ation record ed. hrubner [facility] [address] [place], [address], 10/11/2019 09:19:31 05/11/19 21 05/10/2020 US, echoc ardio gram No observ ation [facility] [address] [place] [address], [address], 05/11/2020 10:38:32 05/31/19 22 05/30/2021 bone densi ty No observ ation record ed. [email or web address] Not Available 2021 11:11:10 Result Notes None recorded. Problems Name Problem SNOMED Code Status Onset Date Resolution Date Notes Provider Name and Address Organization Details Recorded Time Gastroesophag eal reflux disease without esophagitis 354291346 Active 2017 Not Available Replaced by [facility] 2 23:56:05 Degenerative disorder of macula 033127574 Active 2017 Not Available [facility] 2 23:56:05 Vitamin D deficiency 01719633 Active 2017 Not Available [facility] 2 23:56:05 Wolfgang thyroiditis 13331352 Active 2017 Not Available [facility] 2 23:56:05 History of hysterectomy 269067448 Active 2017 Not Available [facility] 2 23:56:05 Multinodular goiter 009766279 Active 2017 Not Available [facility] 2 23:56:05 Problem Notes None recorded. Procedures Surgical History Date Name Laterality Status Provider Name and Address Organization Details Recorded Time 9 Colonoscopy completed [facility] 05/03/2018 13:48:37 Imaging Results Imaging Date Name Status LastModified by Organization Details LastModified Time 10/07/2019 US, knee [email or web address] [address] [place] [address], [address], 10/11/2019 09:19:31 05/10/2020 US, echocardiogram completed [facility] Referral [address], [address], 05/11/2020 10:38:32 05/30/2021 bone density completed Information [...] 3 25 mcg/0.5 mL injection syringe [facility] 01/19 completed Not Available Not Available Not [...] (15 mcg x 4)/0.5mL IM [facility] completed Not Available Not Available Not Available Vitals Date Recorded Body height Body mass index (BMI) Body weight Heart rate Oxygen saturation Oxygen saturation in Arterial blood by Pulse oximetry Systolic blood pressure Diastolic blood pressure Provider Name and Address Organization Details Last Updated DateTime 0 153.67 cm 36.8 kg/m2 77909.9 4 g 70 /min 98 % 98 % 128 mm[Hg] 80 mm[Hg] Selin [facility] 0 11:13:58 Date Recorded Body height Heart rate Oxygen saturation Oxygen saturation in Arterial blood by Pulse oximetry Systolic blood pressure Diastolic blood pressure Provider Name and Address Organization Details Last Updated DateTime 0 153.67 cm 70 /min 95 % 95 % 122 mm[Hg] 82 mm[Hg] Nivia Jean [facility] 0 14:02:15 Date Recorded Body height Body mass index (BMI) Body weight Heart rate Oxygen saturation Oxygen saturation in Arterial blood by Pulse oximetry Systolic blood pressure Diastolic blood pressure Provider Name and Address Organization Details Last Updated DateTime 1 153.67 cm 37 kg/m2 82877.8 9 g 84 /min 97 % 97 % 112 mm[Hg] 82 mm[Hg] Carmelita Peoples [facility] 1 13:53:07 Date Recorded Body height Body mass index (BMI) Body weight Oxygen saturation Oxygen saturation in Arterial blood by Pulse oximetry Heart rate Systolic blood pressure Diastolic blood pressure Provider Name and Address Organization Details Last Updated DateTime 2 153.67 cm 35.7 kg/m2 94130.1 8 g 97 % 97 % 82 /min 130 mm[Hg] 78 mm[Hg] June Landaverde [facility] 2 13:56:31 Date Recorded Body height Body mass index (BMI) Body weight Body temperature Heart rate Oxygen saturation Oxygen saturation in Arterial blood by Pulse oximetry Systolic blood pressure Diastolic blood pressure Provider Name and Address Organization Details Last Updated DateTime 8 153.67 cm 31.5 kg/m2 91710.4 3 g 98.2 [degF] 61 /min 97 % 97 % 116 mm[Hg] 80 mm[Hg] Carmelita Peoples [facility] 8 16:21:27 Social History Question Answer Notes LastModified by Organizat ion Details LastModified Time Tobacco Smoking Status Never Smoker Carmelita abreu [facility] 04/17/2020 13:51:31 What Was The Date Of [...] virus, quadrivalent, preservative 2 completed Not Available [facility] 08/28/2021 23:56:05 Pneumococcal conjugate PCV 13 9 completed Not Available [facility] 08/28/2021 23:56:05 Influenza, split virus, quadrivalent, preservative 9 completed Not Available Replaced by [facility] 08/28/2021 23:56:05 Past Encounters Encounter ID Performer Location Encounter Start Date Encounter Closed Date Diagnosis/Indication Diagnosis SNOMED-CT Code Diagnosis ICD10 Code Diagnosis Note [id number] [facility] [address] [facility],[place] [address] 01/05/2018 16:12:55 01/05/2018 17:04:36 Gastroesophageal reflux disease 649368329 K21.9 and chronic cough has seen gi, tried prilosec, minimal relief of cough, plus doesn't want to take 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 any 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 she would like inflammato ry markers checked she will call if she finds a GI specialist she would like to be referred Chronic cough 88812747 R 05 has also seen pulm who believed it was due to gerd Lipedema 895963653 R60.9 lympholipe benny b/l Vitamin D deficiency 347 77671 E55.9 Persistent vitamin d deficiency despite supplement ation with D2 - 50,000 weekly and D3- 2,000 units daily, malabsorpt ion vs primary vs secondry hyperparat hyroidism has seen endo, who did not believe there was any other underlying issue other than poor absorption of vitamin d Lower abdominal pain 545 02399 R10.30 [id number] Andrew Elder [facility] [address],[place] [address] 09/13/2019 11:04:52 09/13/2019 12:08:44 Sweat gland cyst 09018867 L74.8 pt states she has been told that she has cysts located at her sweat glands the patient looks to have skin tags to the area of where she is pointing does want to see derm to have them removed Wolfgang thyroiditis 21 441315 E06.3 told pt to talk to her endo to do a work up on her to evaluate the cause of her hot flashes Malodorous urine 4668907 01 R82.998 gave urine cup to do urine sample she will bring back to lab for culture Acid reflux 722463714 K2 1.9 will start alkaline water and trial of pecid and let me know how she is doing also suggested adding a pinch of salt into her coffee as it can reduce the acidity [id number] Andrew Elder DO [facility] [address], eugenio Hernandez [facility] [place] [address] 01/20/2020 13:53:20 01/20/2020 15:05:56 Infection of tick bite 377689438 B99.9 will check lyme panel due to symptoms and amount of time tick Vitamin D deficiency 347 36896 E55.9 will check every 6 mo [id number] Andrew Elder DO [facility] [address],Brian [place] [address] 04/17/2020 13:46:13 04/17/2020 14:26:21 Fatigue 31194594 R53.83 will see if there is anything contributo ry to her symptoms and recheck her for lyme disease History of Lyme disease 181097870 Z86.19 the patient still having side effects possibly associated with lyme disease will set up with integrativ e medicine as well for fu Palpitations 76842997 R0 0.2 will fu with echo as well to see if anything cardio is going on to explain the issue [id number] Andrew Elder [facility] [address], [place] [address] 05/07/2021 13:35:36 05/08/2021 16:32:50 Active or passive immunization 732978099 Z23 discussed vaccines she is due for already Fatigue 44750554 R53.83 she has vitamin D defsuffere d from lyme disease discussed fu with endo Vitamin D deficiency 347 45992 E55.9 continue on the medication one per week Osteoporosis 57435945 M8 1.0 waiting on the bone scan for the patienthas appt date Health Concerns Section Related Observation LastModified by Organization Detai ls LastModified Time None Recorded Concern Status LastModified by Organization Details LastModified Time None Recorded Advance Directives Directive None Recorded Payers Encounter Date Sequence Insurance Name Policy Number Policy De La Garza Covered Member ID De La Garza Member ID Guarantor Name 01/05/2018 1 [place] [employer] Geovanny Norman [id number] 18 Marijane Patenaude 09/13/2019 1 [place] [employer] Marijane Patenaude [id number] Marijane Patenaude 01/20/2020 1 [place] [employer] Marijane Patenaude [id number] 18 Marijane Patenaude 04/17/2020 1 [place] [employer] Marijane Patenaude [id number] 18 Marijane Patenaude 05/07/2021 1 [place] [employer] Marijane Patenaude [id number] 18 Marijane Patenaude Notes Date Note Type Note Provider Name a ok Address Organization Details Recorded Time 01/05/2018 text/html 1. went to see joão sequeira as cosmetic surgeon because she wanted to have liposuction done. 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 she would like inflammatory markers [...] or 2. no black or bloody stools May CAITY Doweny [address] [facility], [place], [address], [place] [facility] 01/05/2018 17:03:17 09/13/2019 text/html c/o [...] thyroiditis per endo dr. white located [place] discussed with pt since she is not [...] no dysuria, no n/v/d [facility] [address] [place], [address], [facility] 09/13/2019 21:44:41 01/20/2020 text/html c/o tick bite lump on the right side of the neck turns out it was a engorged tick bite with tick still intact [facility] [address] [place], [address], [facility] 01/20/2020 14:18:01 04/17/2020 text/html fu [...] with BW and echo [facility] [address] [place], [address], [facility] 04/17/2020 18:11:18 05/07/2021 text/html c/o [...] is considering a new doctor [facility] [address] [place], [address], [facility] 05/07/2021 14:30:01 OBGyn Episode No OBEpisode recorded.
--- OUTSIDE RECORDS SUMMARY | 2024-06-23 14:05 | XMS_ITS | Continuity of Care Document ---
Author Organization [facility] [place] [employer] Address [address] [facility] [address] [place] [address] Phone Care Team Providers Care Field Service Manager Name Role Phone Martin Garcia Unavailable Unavailable Procedures Procedure Date PT Did Not Receive Services Advance Directives Directive Yes / No Effective Date File Name No Information Encounters Encounter Description Practice Location Reason(s) For Visit Diagnoses Date Provider Providers Copied on Encounter [facility], [address], [place], [place], [id number], tel:[phone] [facility] No Information Jose Salazar. [address] [facility] [address], [place], [facility], . tel:[phone] Referring Provider: Martin Perry, [address], [place], [facility]. tel:[phone] Family History Family Member Type Diagnosis Age At Onset No Information Payers Payer name Insurance type Covered alliance party ID Authoriza tion(s) [place] [id number] Social History Type Description Quantity Date Captured Comments Sex Male Smoking Status No Information Chief Complaint And Reason For Visit No Information Reason For Referral Reason For Referral No Information History Of Present Illness Encounter Date Complaint History Of Prese nt Illness No Information Functional Status Date Functional Assessmen t No Information Instructions Date Instruction Additional Infor mation No Information Assessments Type Assessment Date No Information Patient Care Teams Name Effective Dates (start - stop) Status Members No Information
== END 2024-06-23 13:01 | disposition home or self-care (01) ==
LOC: HO.HOSX 13:00
PROVIDERS: Visit Provider Orthopaedic Surgery
DX: Z13.89 Encounter for screening for other disorder (principal)

== ENCOUNTER 2024-08-01 12:51 | Outpatient (REF) | payer MEDICARE, SELFPAY ==
--- NOTE | ~2024-08-01 | XR_ITS ---
EXAMINATION: XR PELVIS CLINICAL INFORMATION: M25.559 - Pain in unspecified hip COMPARISON: August 14, 2022. TECHNIQUE: AP view of the pelvis. FINDINGS: Excluded iliac crest bilaterally. Total left hip arthroplasty prosthesis, intact and well seated in the osseous structures without lytic or blastic lesions or loosening. XR/XR pelvis 1-2V IMPRESSION: Limited exam. Status post total left hip arthroplasty prosthesis. Electronically signed by: Kalin Powers MD 08/01/2024 02:32 PM EDT
--- OUTSIDE RECORDS SUMMARY | 2024-08-01 14:13 | XMS_ITS | Data Portability ---
Author Organization [facility] Telehealth Patient Home Address [address] [place] [address] Assessment Encounter Date Assessment Date Assessment LastModified by Organization Details LastModified Time 01/05/2018 01/05/2018 A TOTAL OF 40 MINUTES WAS SPENT FACE TO FACE [email or web address] Not available 01/05/2018 17:03:12 04/17/2020 04/17/2020 [id number] [place] [id number] (CREDIT AUTHORIZER) MDM MODERATE MUST MEET 2 OUT OF [...] vitamin D, 25-hydroxy , total, serum 2020 [facility], [address] [place] [address], [place], [address], 11:52:10 TSH + free T4, serum 2020 [facility], [address] [place] [address], [address], 11:52:10 CBC w/ auto diff 032020 [facility], [address] [place] [address], [address], 11:52:10 iron + TIBC + ferritin, serum 2020 [facility], [address] [place] [address], [address], 11:52:10 vitamin B12 + folate, serum or blood 2020 [facility], [address] [place] [address], [address], 11:52:10 ESR (erythrocy te sedimentat ion rate), blood 2020 [facility], [address] [place] [address], [address], 14:11:22 C-reactive protein, quantitati ve, serum or plasma 2020 [facility], [address] [place] [address], [address], 14:11:21 lyme disease igg+igm, serum, reflex western blot 2020 [facility], [address] [place] [address], [address], 11:52:56 ERIK + rf (antinucle ar antibodies + rheumatoid factor), quantitati ve, serum 2020 [facility], [address] [place] [address], [address], 11:57:05 vitamin D, 25-hydroxy , total, serum 2019 [facility], [address] [place] [address], [address], 0 12:03:32 vitamin D, 25-hydroxy , total, serum 2019 021 [facility], [address] [place] [address], [address], 0 12:03:32 urinalysis , reflex culture 2017 018 [facility], [address] [place] [address], [address], 8 17:24:52 ESR (erythrocy te sedimentat ion rate), blood 2017 018 [facility], [address] [place] [address], [address], 8 17:24:52 C reactive protein, QN, serum or plasma 2017 018 [facility], [address] [place] [address], [place], [address], 8 17:24:52 CMP, serum or plasma 2017 018 [facility], [address] [place] [address], [place], [address], 8 17:24:52 Referral integrativ e medicine referral 2020 021 ana [facility], [address] [place] [address], [place], [address], 1 09:46:34 dermatolog ist referral 2019 020 ana [facility], [address], [place], [address], 0 08:14:15 gastroente rologist referral - gerd with chronic cough, lower abdominal pain with stool caliber changes, chronic poor vitamin d absorption 2017 018 ana Stuart MD, [address] [facility], [place], [address], 8 09:31:47 Procedures None recorded. Surgeries None recorded. Imaging US, echocardio gram 2020 021 [email or web address] Not available 08:38:28 CT, abdomen + pelvis, w/ contrast - lower abdominal pain, stool caliber changes, family history of ovarian cancer 2017 018 [email or web address] Not available 8 08:38:25 Medication Orders doxycyclin e hyclate 100 mg tablet 2019 020 [email or web address] [id number], [address] [place], [address], 13:50:56 Patient TargetsNo targets recorded. 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 [facility] [address] [place], [address], 10/11/2019 09:19:31 05/11/19 21 05/10/2020 US, echo ardio gram No observ ation record ed. [facility] [address] [place] [address], [place], [address], 05/11/2020 10:38:32 05/31/19 22 05/30/2021 bone densi ty No observ ation record ed. [email or web address] Not Available 2021 11:11:10 Result Notes None recorded. Problems Name Problem SNOMED Code Status Onset Date Resolution Date Notes Provider Name and Address Organization Details Recorded Time Gastroesophag eal reflux disease without esophagitis 828154219 Active 2017 Not Available [facility] 2 23:56:05 Degenerative disorder of macula 305496475 Active 2017 Not Available [facility] 2 23:56:05 Vitamin D deficiency 12549278 Active 2017 Not Available [facility] 2 23:56:05 Wolfgang thyroiditis 57236637 Active 2017 Not Available [facility] 2 23:56:05 History of hysterectomy 589339547 Active 2017 Not Available [facility] 2 23:56:05 Multinodular goiter 865405022 Active 2017 Not Available [facility] 2 23:56:05 Problem Notes None recorded. Procedures Surgical History Date Name Laterality Status Provider Name and Address Organization Details Recorded Time 9 Colonoscopy completed [facility] 05/03/2018 13:48:37 Imaging Results None recorded. Procedure Notes None recorded. Medical Equipment None [...] 3 25 mcg/0.5 mL injection syringe [facility] 01/19 completed Not Available Not Available [...] Available Not Available Not Available Fluad Quad 3921-9199(6 5yr up)(PF) 60 mcg (15 mcg x 4)/0.5mL IM syringe [facility] 01/19 completed Not Available Not Available Not Available Vitals Date Recorded Body height Body mass index (BMI) Body weight Heart rate Oxygen saturation Oxygen saturation in Arterial blood by Pulse oximetry Systolic blood pressure Diastolic blood pressure Provider Name and Address Organization Details Last Updated DateTime 1 153.67 cm 37 kg/m2 90343.8 9 g 84 /min 97 % 97 % 112 mm[Hg] 82 mm[Hg] Carmelita Peoples [facility] 1 13:53:07 Date Recorded Body height Body mass index (BMI) Body weight Oxygen saturation Oxygen saturation in Arterial blood by Pulse oximetry Heart rate Systolic blood pressure Diastolic blood pressure Provider Name and Address Organization Details Last Updated DateTime 2 153.67 cm 35.7 kg/m2 09014.1 8 g 97 % 97 % 82 /min 130 mm[Hg] 78 mm[Hg] June Landaverde [facility] 2 13:56:31 Date Recorded Body height Body mass index (BMI) Body weight Heart rate Oxygen saturation Oxygen saturation in Arterial blood by Pulse oximetry Systolic blood pressure Diastolic blood pressure Provider Name and Address Organization Details Last Updated DateTime 0 153.67 cm 36.8 kg/m2 71415.9 4 g 70 /min 98 % 98 % 128 mm[Hg] 80 mm[Hg] Selin [facility] 0 11:13:58 Date Recorded Body height Body mass index (BMI) Body weight Body temperature Heart rate Oxygen saturation Oxygen saturation in Arterial blood by Pulse oximetry Systolic blood pressure Diastolic blood pressure Provider Name and Address Organization Details Last Updated DateTime 8 153.67 cm 31.5 kg/m2 19507.4 3 g 98.2 [degF] 61 /min 97 % 97 % 116 mm[Hg] 80 mm[Hg] Carmelita Richelle [facility] 8 16:21:27 Date Recorded Body height Heart rate Oxygen saturation Oxygen saturation in Arterial blood by Pulse oximetry Systolic blood pressure Diastolic blood pressure Provider Name and Address Organization Details Last Updated DateTime 0 153.67 cm 70 /min 95 % 95 % 122 mm[Hg] 82 mm[Hg] Nivia Andersonantonio [facility] 0 14:02:15 Social History Question Answer Notes LastModified by Organizat ion Details LastModified Time Tobacco Smoking Status Never Smoker Carmelita Peoples [facility] 04/17/2020 13:51:31 What Was The Date Of Your Most Recent Tobacco Screening? 05/07/2021 [email or web address] Information not available 05/07/2021 Sex: Unknown Functional Status None recorded. Mental Status None recorded. Family History Nothing Reported. Medical History No medical history recorded. Gynecological HistoryNo gynecological history recorded. Obstetrics History GPAL:G 0 P 0 0 0 0 Immunizations Vaccine Type Date Status Note Provider Nam e and Address Organization Details Recorded Time Influenza, split virus, quadrivalent, preservative 2 completed Not Available [facility] 08/28/2021 23:56:05 Pneumococcal conjugate PCV 13 9 completed Not Available [facility] 08/28/2021 23:56:05 Influenza, split virus, quadrivalent, preservative 9 completed Not Available [facility] 08/28/2021 23:56:05 Past Encounters Encounter ID Performer Location Encounter Start Date Encounter Closed Date Diagnosis/Indication Diagnosis SNOMED-CT Code Diagnosis ICD10 Code Diagnosis Note [id number] DO [facility] [address] [facility],[place] [address] 01/05/2018 16:12:55 01/05/2018 17:04:36 Gastroesophageal reflux disease 744839718 K21.9 and chronic cough has seen gi, tried prilosec, minimal relief of cough, plus doesn't want to take meds half-way any way she would like inflammato ry markers checked she will call if she finds a GI specialist she would like to be referred Chronic cough 48531354 R 05 has also seen pulm who believed it was due to gerd 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 lympholipe benny b/l Vitamin D deficiency 347 31083 E55.9 Persistent vitamin d deficiency despite supplement ation with D2 - 50,000 weekly and D3- 2,000 units daily, malabsorpt ion vs primary vs secondry hyperparat hyroidism has seen endo, who did not believe there was any other underlying issue other than poor absorption of vitamin d Lower abdominal pain 545 16151 R10.30 [id number] Andrew Elder [facility] [address] [facility],[place] [address] 09/13/2019 11:04:52 09/13/2019 12:08:44 Sweat gland cyst 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.8 pt states she has been told that she has cysts located at her sweat glands the patient looks to have skin tags to the area of where she is pointing does want to see derm to have them removed Wolfgang thyroiditis 21 628161 E06.3 told pt to talk to her endo to do a work up on her to evaluate the cause of her hot flashes Malodorous urine 4267560 01 R82.998 gave urine cup to do urine sample she will bring back to lab for culture Acid reflux 231593890 K2 1.9 will start alkaline water and trial of pecid and let me know how she is doing also suggested adding a pinch of salt into her coffee as it can reduce the acidity [id number] Andrew Elder [facility] [address] [facility],[place] [address] 01/20/2020 13:53:20 01/20/2020 15:05:56 Infection of tick bite 941054562 B99.9 will check lyme panel due to symptoms and amount of time tick Vitamin D deficiency 347 58431 E55.9 will check every 6 mo [id number] Andrew Elder [facility] [address] [facility] [place] [address] 04/17/2020 13:46:13 04/17/2020 14:26:21 Fatigue 05133442 R53.83 will see if there is anything contributo ry to her symptoms and recheck her for lyme disease History of Lyme disease 774386472 Z86.19 the patient still having side effects possibly associated with lyme disease will set up with integrativ e medicine as well for fu Palpitations 28248430 R0 0.2 will fu with echo as well to see if anything cardio is going on to explain the issue [id number] Andrew Elder, [facility] [address] [facility] [address],[place] [address] 05/07/2021 13:35:36 05/08/2021 16:32:50 Active or passive immunization 535292788 Z23 discussed vaccines she is due for already Fatigue 17036263 R53.83 she has vitamin D defsuffere d from lyme disease discussed fu with endo Vitamin D deficiency 347 99894 E55.9 continue on the medication one per week Osteoporosis 01827663 M8 1.0 waiting on the bone scan for the patienthas appt date Health Concerns Section Related Observation LastModified by Organization Detai ls LastModified Time None Recorded Concern Status LastModified by Organization Details LastModified Time None Recorded Advance Directives Directive None Recorded Payers Insurance Date Sequence Insurance Name Policy Number Policy De La Garza Covered Member ID De La Garza Member ID Guarantor Name 04/20/2021 1 MEDICARE [place]: [facility] Geovanny Norman [id number] Geovanny Norman Notes Date Note Type Note Provider Name a nd Address Organization Details Recorded Time 01/05/2018 text/html 1. went to see joão sequeira as cosmetic surgeon because she wanted to have liposuction done. at that appointment she was told that liposuction could cause lympholipedema so she was sent to [facility] who did massage with [...] plus doesn't want to take meds long goods drier any way. she would like inflammatory markers [...] 2. no black or bloody stools May NasreenARIAUMM [address] [place] [address], [place], [address], [facility] 01/05/2018 17:03:17 09/13/2019 [...] thyroiditis per endo dr. white located in just[place] discussed with pt since she is not [...] no dysuria, no n/v/d COLE WILSON [address] [place], [address], [facility] 09/13/2019 21:44:41 01/20/2020 text/html c/o tick bite lump on the right side of the neck turns out it was a engorged tick bite with tick still intact COLE WILSON [address] [place], [address], [facility] 01/20/2020 14:18:01 04/17/2020 text/html fu [...] with BW and echo COLE WILSON [address] [place], [address], [facility] 04/17/2020 18:11:18 05/07/2021 text/html c/o [...] is considering a new doctor COLE WILSON [address] [place] [address], [phone], [facility] 05/07/2021 14:30:01 OBGyn Episode No OBEpisode recorded.
== END 2024-08-01 12:52 | disposition home or self-care (01) ==
LOC: HO.HOSX 12:51
PROVIDERS: Visit Provider Orthopaedic Surgery
DX: M25.559 Pain in unspecified hip (principal); M24.551 Contracture, right hip
CPT/HCPCS: 72170; 99212

== ENCOUNTER 2024-08-01 13:21 | Outpatient (AMB) | payer MEDICARE, SELFPAY ==
--- NOTE | 2024-08-01 13:36 | A.OFFVIS_ITS ---
Vital Signs 08/01/24 13:37 Height 5 ft 2 in Weight 175 lb BMI 32.0 Intake Visit Reasons: OV - Left Hip Pain - Hx of BRAYAN Continued Pain Intake Note: Geovanny is a 79 year old female who presents today for a follow up of her Left Hip pain. Hx of Left BRAYAN 02/26/2022. Patient previously reported an onset of lateral thigh pain, radiating to lower buttocks that occurred after heavy lifting and weeding her garden. She was given an Rx of Gabapentin, If her symtpoms persisted after home exercise program and Rx then we would discuss referral to pain management. Patient states that she was going to physical therapy but stopped due to the pain. Patient states no numbness or tingling to report. Patient states that the right hip is her concern today, states that the pain has been going on about four to five months. Allergies No Known Allergies Allergy (Verified 11/25/22 15:53) HPI HPI OV - Left Hip Pain - Hx of BRAYAN Continued Pain: Details: Geovanny is a 79 year old female who presents today for a follow up of her Left Hip pain. Hx of Left BRAYAN 02/26/2022. Patient previously reported an onset of lateral thigh pain, radiating to lower buttocks that occurred after heavy lifting and weeding her garden. She was given an Rx of Gabapentin, If her symtpoms persisted after home exercise program and Rx then we would discuss referral to pain management. Patient states that she was going to physical therapy but stopped due to the pain. Patient states no numbness or tingling to report. Patient states that the right hip is her concern today, states that the pain has been going on about four to five months. She points to her hip flexors on the right as the site of pain. [facility] Medical History Lumbar radiculopathy Family history of anesthesia complication Arthritis Arthritis of left hip Positive Lyme disease serology Encounter for screening for viral disease Myopathy Fatigue Osteoarthritis of left hip Lymphedema Macular degeneration GERD (gastroesophageal reflux disease) Surgical History Hx of tonsillectomy History of esophagogastroduodenoscopy (EGD) H/O colonoscopy H/O: hysterectomy Family History Mother Lung cancer Father Lung cancer Social History Household Members Other:: lives alone Housing: House Are you a primary transitional care manager to a significant other at home: No Do you presently have visiting nurse or other home services: No 75 years or older and lives alone: No Alcohol intake: current Alcohol intake frequency: holidays/special occasions only Alcohol type: hard liquor Patient Tobacco Use Status: Never used Tobacco e-Cigarette/Vaping Use: Never Used service: No Current occupational status: retired 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 She has no gait antalgia and negative impingement. Her right hip is notable for some tenderness along the greater trochanter. She does have some mild discomfort with resisted forward flexion but no pain with passive range of motion. Results Reviewed Results Reviewed: I personally reviewed relevant radiographs. Left BRAYAN in expected post operative position with no hardware complications or evidence of loosening Minimal right hip osteoarthritis Assessment & Plan Assessment & Plan (1) Hip flexor tightness: Code(s): M24.559 - Contracture, unspecified hip Category: Medical Plan: This is a 79-year-old woman with tightness in her right hip flexors as well as some tenderness over the greater trochanter. She has no evidence of hip arthritis. I instructed her on some hip flexor stretching exercises which she stated felt good and she will perform these. I do recommend that she remain active. There is no surgical intervention warranted. Plan Follow up PRN Orders: Orders XR pelvis 1-2V 08/01/24 M25.559 - Pain in unspecified hip Coding Level of Care Code Est Pt Level 3 (16339) Diagnoses Hip flexor tightness M24.559
[2024-08-01 13:37] VITALS: BMI 32.0
== END 2024-08-01 14:37 | disposition home or self-care (01) ==
LOC: HO.HOS 13:21
PROVIDERS: PCP Family Medicine; Visit Provider Orthopaedic Surgery
DX: M24.552 Contracture, left hip (principal)
CPT/HCPCS: 99213

== ENCOUNTER → 2024-08-01 13:22 | Outpatient (BNV) | payer MEDICARE, SELFPAY | PROVIDERS: Visit Provider Radiology Diagnostic Radiology | DX: M25.559 Pain in unspecified hip (principal); Z96.642 Presence of left artificial hip joint | CPT/HCPCS: 72170 ==